=== PATIENT | male | born 1940 ===

== ENCOUNTER 2024-09-09 22:38 | Inpatient (IN) | payer MEDICARE, OTHER ==
--- NOTE | 2024-09-09 22:40 | ED ---
Recheck HPI - General Stated Complaint: UTI Time Seen by Provider: 09/09/24 22:39 Source: RN notes reviewed, old records reviewed Mode of arrival: EMS Limitations: altered mental status - History of Present Illness Initial Comments: This is an 84-year-old male recheck UTI possible UTI known recent fever. Prolonged recent inpatient hospitalization where he was intubated for res piratory failure pneumonia urinary tract infection and multiple other comorbid conditions. Patient was on life support for quite some time has been home for about a week symptoms progressively worsened over the last 2 days with fever today patient himself is without complaint but does appear to have some shortness of breath with cough MD Complaint: abnormal lab Returns Today for: Called Because of Abnormal Lab/Test, persistent/worsening pain related to initial visit Symptoms Since Prior Visit: no new symptoms Context: called for abnormal lab result Associated Symptoms: none Treatments Prior to Arrival: urinary catheter in place, Given Antibiotics on - Related Data Home Medications Medication Instructions Recorded Confirmed Atorvastatin [Lipitor] 40 mg PO DAILY 09/10/24 09/10/24 Brimonidine Tartrate/Timolol 1 drop BOTH EYES TID 09/10/24 09/10/24 [Combigan 0.2%-0.5% Eye Drops] Cetirizine HCl 10 mg PO DAILY 09/10/24 09/10/24 Cyanocobalamin (Vitamin B-12) 1,000 mcg PO DAILY 09/10/24 09/10/24 [Vitamin B-12] Docusate [Colace] 100 mg PO BID 09/10/24 09/10/24 Dorzolamide 2% [Trusopt 2%] 1 drops BOTH EYES TID 09/10/24 09/10/24 Ferrous Sulfate [Feosol] 325 mg PO DAILY 09/10/24 09/10/24 HYDROcodone/APAP 7.5-325MG [[place] 1 tab PO Q6H PRN 09/10/24 09/10/24 7.5-325] LORazepam [Ativan] 0.5 mg PO Q12H PRN 09/10/24 09/10/24 Latanoprostene Bunod [Vyzulta] 1 drop BOTH EYES HS 09/10/24 09/10/24 Levothyroxine Sodium [Synthroid] 175 mcg PO DAILY 09/10/24 09/10/24 Metoprolol Succinate (ER) [Toprol 100 mg PO DAILY 09/10/24 09/10/24 Xl] Pantoprazole [Protonix] 40 mg PO DAILY 09/10/24 09/10/24 QUEtiapine [SEROquel] 12.5 mg PO HS 09/10/24 09/10/24 allopurinoL [Zyloprim] 300 mg PO DAILY 09/10/24 09/10/24 cilostazoL [Pletal] 100 mg PO BID 09/10/24 09/10/24 Allergies Allergy/AdvReac Type Severity Reaction Status Date / Time No Known Allergies Allergy Verified 09/10/24 09:46 Review of Systems ROS Statement: Those systems with pertinent positive or pertinent negative responses have been documented in the HPI. ROS Other: All systems not noted in ROS Statement are negative. Past Medical History Past Medical History: Cancer, Hypertension Additional Past Medical History / Comment(s): gout, bladder cancer History of Any Multi-Drug Resistant Organisms: None Reported Past Surgical History: No Surgical Hx Reported Past Psychological History: No Psychological Hx Reported Smoking Status: Current every day smoker Past Alcohol Use History: Occasional Past Drug Use History: None Reported - Past Family History Brother(s) Family Medical History: Cancer Additional Family Medical History / Comment(s): passed young General Exam General appearance: alert, in no apparent distress Head exam: Present: atraumatic, normocephalic, normal inspection Eye exam: Present: normal appearance, PERRL, EOMI. Absent: scleral icterus, conjunctival injection, periorbital swelling ENT exam: Present: normal exam, mucous membranes moist Neck exam: Present: normal inspection. Absent: tenderness, meningismus, lymphadenopathy Respiratory exam: Present: normal lung sounds bilaterally. Absent: respiratory distress, wheezes, rales, rhonchi, stridor Cardiovascular Exam: Present: regular rate, normal rhythm, normal heart sounds. Absent: systolic murmur, diastolic murmur, rubs, gallop, clicks GI/Abdominal exam: Present: soft, normal bowel sounds. Absent: distended, tenderness, guarding, rebound, rigid Extremities exam: Present: normal inspection, full ROM, normal capillary refill. Absent: tenderness, pedal edema, joint swelling, calf tenderness Back exam: Present: normal inspection Neurological exam: Present: alert, oriented X3, CN II-XII intact Psychiatric exam: Present: normal affect, normal mood Skin exam: Present: warm, dry, intact, normal color. Absent: rash Course Vital Signs 09/09/24 09/10/24 09/10/24 22:43 00:48 01:02 Temperature 101.8 F H 98.8 F Pulse Rate 89 71 87 Respiratory 20 18 Rate Blood Pressure 107/56 93/51 O2 Sat by Pulse 97 96 Oximetry 09/10/24 09/10/24 09/10/24 02:55 03:26 03:54 Temperature 97.9 F Pulse Rate 74 80 73 Respiratory 16 20 Rate Blood Pressure 95/59 115/51 O2 Sat by Pulse 92 L 94 L Oximetry 09/10/24 09/10/24 09/10/24 04:04 04:11 04:20 Temperature Pulse Rate 72 79 76 Respiratory 20 20 Rate Blood Pressure 83/42 109/48 O2 Sat by Pulse 94 L 89 L Oximetry 09/10/24 09/10/24 09/10/24 04:32 04:47 05:00 Temperature Pulse Rate 74 79 78 Respiratory 18 20 16 Rate Blood Pressure 91/44 103/51 110/65 O2 Sat by Pulse 92 L 95 93 L Oximetry 09/10/24 09/10/24 09/10/24 06:00 06:26 07:30 Temperature 98 F Pulse Rate 75 77 Respiratory 16 16 Rate Blood Pressure 111/57 107/58 O2 Sat by Pulse 95 90 L 85 L Oximetry 09/10/24 09/10/24 09/10/24 08:36 08:58 09:08 Temperature 97.9 F Pulse Rate 76 76 75 Respiratory 26 H 24 Rate Blood Pressure 106/65 118/49 O2 Sat by Pulse 88 L 97 Oximetry 09/10/24 09/10/24 09/10/24 09:11 10:23 11:27 Temperature Pulse Rate 78 80 82 Respiratory 22 20 Rate Blood Pressure 111/50 106/62 O2 Sat by Pulse 96 95 Oximetry 09/10/24 09/10/24 09/10/24 12:00 12:05 12:14 Temperature Pulse Rate 79 80 72 Respiratory 20 Rate Blood Pressure 90/49 O2 Sat by Pulse 93 L Oximetry 09/10/24 12:38 Temperature Pulse Rate 71 Respiratory 20 Rate Blood Pressure 102/55 O2 Sat by Pulse 96 Oximetry - Reevaluation(s) Reevaluation #1: 09/09/24 22:47 Medical records reviewed Reevaluation #2: 09/09/24 23:40 Patient has no relative changes in symptoms here in the ER Reevaluation #3: 09/09/24 23:40 Patient informed of results questions answered Reevaluation #4: Was pt. sent in by a medical professional or institution (EMELYN Kiran, PAD MACHINE OPERATOR, urgent care, hospital, or longterm...) When possible be specific @ -no Did you speak to anyone other than the patient for history (EMS, parent, family, police, friend...)? What history was obtained from this source @ -no Did you review nursing and triage notes (agree or disagree)? Why? @ -agree Are old charts reviewed (outside hosp., previous admission, EMS record, old EKG, old radiological studies, urgent care reports/EKG's, longterm records)? Report findings @ -yes Differential Diagnosis (chest pain, altered mental status, abdominal pain women, abdominal pain men, vaginal bleeding, weakness, fever, dyspnea, syncope, headache, dizziness, GI bleed, back pain, seizure, CVA, palpatations, mental hea lth, musculoskeletal)? @ -prior EKG interpreted by me (3pts min.). @ -yes X-rays interpreted by me (1pt min.). @ -yes pneumonia CT interpreted by me (1pt min.). @ -Yes positive for pneumonia U/S interpreted by me (1pt. min.). @ -no What testing was considered but not performed or refused? (CT, X-rays, U/S, labs)? Why? @ -none What meds were considered but not given or refused? Why? @ -none Did you discuss the management of the patient with other professionals (professionals i.e. EMELYN Kiran, PAD MACHINE OPERATOR, lab, RT, psych nurse, social work nurse, bonding agent, teacher, control systems drafting officer, major case detective)? Give summary @ -no Was smoking cessation discussed for >3mins.? @ -no Was critical care preformed (if so, how long)? @ -yes31 Were there social determinants of health that impacted care today? How? (Homelessness, low income, unemployed, alcoholism, drug addiction, transportation, low edu. Level, literacy, decrease access to med. care, fpc, rehab)? @ -none Was there de-escalation of care discussed even if they declined (Discuss DNR or withdrawal of care, Hospice)? DNR status @ -no What co-morbidities impacted this encounter? (DM, HTN, Smoking, COPD, CAD, Cancer, CVA, ARF, Chemo, Hep., AIDS, mental health diagnosis, sleep apnea, morbid obesity)? @ -none Was patient admitted / discharged? Hospital course, mention meds given and route, prescriptions, significant lab abnormalities, going to OR and other pertinent info. @ - 84 male to be admitted for fever and sepsis Admitted Undiagnosed new problem with uncertain prognosis? @ -no Drug Therapy requiring intensive monitoring for toxicity (Heparin, Nitro, Insulin, Cardizem)? @ -no Were any procedures done? @ -no Diagnosis/symptom? @ -Fever and sepsis Acute, or Chronic, or Acute on Chronic? @ -Acute Uncomplicated (without systemic symptoms) or Complicated (systemic symptoms)? @ -Complicated Side effects of treatment? @ -no Exacerbation, Progression, or Severe Exacerbation? @ -exacerbation Poses a threat to life or bodily function? How? (Chest pain, USA, NC, pneumonia, PE, COPD, DKA, ARF, appy, cholecystitis, CVA, Diverticulitis, Homicidal, Suicidal, threat to staff... and all critical care pts) @ -yes extremes of age Reevaluation #5: Differential Weakness: Hypoglycemia, shock, sepsis, hyponatremia, anemia, infection, NC, ETOH, adverse medicine reaction, overdose, stroke, this is not meant to be an all-inclusive list. - Consultations Consultation #1: Patient will be admitted to Dr. Ceballos for evaluation of fever and sepsis Medical Decision Making - Medical Decision Making 84 male to be admitted for fever and sepsis - Lab Data Result diagrams: 09/11/24 05:51 09/11/24 05:51 Lab Results 09/09/24 09/09/24 09/09/24 Range/Units 22:51 22:51 22:51 WBC 18.05 H (4.50-10.00) 10*3/uL RBC 3.71 L (4.40-5.60) 10*6/uL Hgb 10.9 L (13.0-17.0) g/dL Hct 33.1 L (39.6-50.0) % MCV 89.2 (80.0-97.0) fL MCH 29.4 (27.0-32.0) pg MCHC 32.9 (32.0-37.0) g/dL Plt Count 187 (140-440) 10*3/uL MPV 11.1 (9.5-12.2) fL Immature Gran % (Auto) 1.1 % Neutrophils % 80.2 % Lymphocytes % 9.5 % Monocytes % 8.7 % Eosinophils % 0.2 % Basophils % 0.3 % Immature Gran # 0.19 H (0.00-0.04) 10*3/uL Neutrophils # 14.49 H (1.80-7.70) 10*3/uL Lymphocytes # 1.71 (0.90-5.00) 10*3/uL Monocytes # 1.57 H (0.20-1.00) 10*3/uL Eosinophils # 0.03 L (0.04-0.35) 10*3/uL Basophils # 0.06 (0.00-0.10) 10*3/uL PT 11.4 (10.0-12.5) sec INR 1.0 (<1.2) APTT 26.4 (22.0-30.0) sec Sodium 136 L (137-145) mmol/L Potassium 4.3 (3.5-5.1) mmol/L Chloride 106 (98-107) mmol/L Carbon Dioxide 18 L (22-30) mmol/L Anion Gap 12 mmol/L BUN 42 H (9-20) mg/dL Creatinine 2.37 H (0.66-1.25) mg/dL Est GFR (CKD-EPI)AfAm 28 (>60 ml/min/1.73 sqM) Est GFR (CKD-EPI)NonAf 24 (>60 ml/min/1.73 sqM) Glucose 116 H (74-99) mg/dL Plasma Lactic Acid Bandar (0.7-2.0) mmol/L Calcium 9.1 (8.4-10.2) mg/dL Phosphorus 2.6 (2.5-4.5) mg/dL Magnesium 1.4 L (1.6-2.3) mg/dL Total Bilirubin 0.9 (0.2-1.3) mg/dL AST 19 (17-59) U/L ALT 11 (4-49) U/L Alkaline Phosphatase 80 (38-126) U/L Troponin I (0.000-0.034) ng/mL NT-Pro-B Natriuret Pep 1970 pg/mL Total Protein 6.3 (6.3-8.2) g/dL Albumin 3.4 L (3.5-5.0) g/dL 09/09/24 09/09/24 Range/Units 22:51 22:51 WBC (4.50-10.00) 10*3/uL RBC (4.40-5.60) 10*6/uL Hgb (13.0-17.0) g/dL Hct (39.6-50.0) % MCV (80.0-97.0) fL MCH (27.0-32.0) pg MCHC (32.0-37.0) g/dL Plt Count (140-440) 10*3/uL MPV (9.5-12.2) fL Immature Gran % (Auto) % Neutrophils % % Lymphocytes % % Monocytes % % Eosinophils % % Basophils % % Immature Gran # (0.00-0.04) 10*3/uL Neutrophils # (1.80-7.70) 10*3/uL Lymphocytes # (0.90-5.00) 10*3/uL Monocytes # (0.20-1.00) 10*3/uL Eosinophils # (0.04-0.35) 10*3/uL Basophils # (0.00-0.10) 10*3/uL PT (10.0-12.5) sec INR (<1.2) APTT (22.0-30.0) sec Sodium (137-145) mmol/L Potassium (3.5-5.1) mmol/L Chloride (98-107) mmol/L Carbon Dioxide (22-30) mmol/L Anion Gap mmol/L BUN (9-20) mg/dL Creatinine (0.66-1.25) mg/dL Est GFR (CKD-EPI)AfAm (>60 ml/min/1.73 sqM) Est GFR (CKD-EPI)NonAf (>60 ml/min/1.73 sqM) Glucose (74-99) mg/dL Plasma Lactic Acid Bandar 0.9 (0.7-2.0) mmol/L Calcium (8.4-10.2) mg/dL Phosphorus (2.5-4.5) mg/dL Magnesium (1.6-2.3) mg/dL Total Bilirubin (0.2-1.3) mg/dL AST (17-59) U/L ALT (4-49) U/L Alkaline Phosphatase (38-126) U/L Troponin I 0.015 (0.000-0.034) ng/mL NT-Pro-B Natriuret Pep pg/mL Total Protein (6.3-8.2) g/dL Albumin (3.5-5.0) g/dL - EKG Data -: EKG Interpreted by Me (EKG sinus 88 CA 162 QRS 84 QTc 385) - Radiology Data Radiology results: report reviewed (Chest x-ray is negative for acute disease, CT chest negative for acute disease), image reviewed Critical Care Time Critical Care Time: Yes Total Critical Care Time: 31 Disposition Clinical Impression: Fever, Sepsis, UTI (urinary tract infection), History of recent pneumonia Disposition: ADMITTED IP TO THIS HOSP Condition: Serious Is patient prescribed a controlled substance at d/c from ED?: No Time of Disposition: 23:55
[2024-09-09 23:03] LABS: Basophils # (A) 0.06 10*3/uL (0.00-0.10); Basophils % (A) 0.3 %; Eosinophils # (A) 0.03 10*3/uL (0.04-0.35); Eosinophils % (A) 0.2 %; HCT 33.1 % (39.6-50.0); HGB 10.9 g/dL (13.0-17.0); Lymphocytes # (A) 1.71 10*3/uL (0.90-5.00); Lymphocytes % (A) 9.5 %; MCH 29.4 pg (27.0-32.0); MCHC 32.9 g/dL (32.0-37.0); MCV 89.2 fL (80.0-97.0); Monocytes # (A) 1.57 10*3/uL (0.20-1.00); Monocytes % (A) 8.7 %; Neutrophils # (A) 14.49 10*3/uL (1.80-7.70); Neutrophils % (A) 80.2 %; Platelet Count 187 10*3/uL (140-440); RBC 3.71 10*6/uL (4.40-5.60); RDW 14.6 % (11.5-14.5); WBC 18.05 10*3/uL (4.50-10.00)
[2024-09-09] MEDS: SODIUM CHLORIDE 0.9% 1,000 ML IV ONE (23:07)
[2024-09-09] MEDS: ACETAMINOPHEN IV (For NPO) 1,000 MG in EMPTY BAG 1 BAG IVPB ONE (23:09)
[2024-09-09] MEDS: IBUPROFEN IV 800 MG in SODIUM CHLORIDE 0.9% 250 ML IV ONE (23:21)
[2024-09-09 23:25] LABS: ALT 11 U/L (4-49); AST 19 U/L (17-59); African American GFR (CKD) 28 (>60 ml/min/1.73 sqM); Albumin 3.4 g/dL (3.5-5.0); Alkaline Phosphatase 80 U/L (38-126); Anion Gap 12 mmol/L; Blood Urea Nitrogen 42 mg/dL (9-20); Calcium 9.1 mg/dL (8.4-10.2); Carbon Dioxide 18 mmol/L (22-30); Chloride 106 mmol/L (98-107); Glucose 116 mg/dL (74-99); Magnesium 1.4 mg/dL (1.6-2.3); Non-African American GFR(CKD) 24 (>60 ml/min/1.73 sqM); Potassium 4.3 mmol/L (3.5-5.1); Sodium 136 mmol/L (137-145); Total Protein 6.3 g/dL (6.3-8.2)
[2024-09-09 23:32] LABS: NT-Pro-B-Type Natriuretic Pept 1970 pg/mL
[2024-09-09 23:35] LABS: INR 1.0 (<1.2); Partial Thromboplastin Time 26.4 sec (22.0-30.0); Prothrombin Time 11.4 sec (10.0-12.5)
[2024-09-09] MEDS ORDERED: NALOXONE 0.4 MG/ML 1 ML VIAL IV PRN (23:41)
[2024-09-09] MEDS ORDERED: ONDANSETRON 4 MG/2 ML VIAL IVP PRN (23:41)
[2024-09-10 00:40] LABS: VBG HCO3 21.0 mmol/L (24-28); VBG PCO2 43.0 mmHg (37-51); VBG PH 7.29 (7.31-7.41)
[2024-09-10] MEDS: LACTATED RINGERS 1,000 ML IV SCH (00:45)
[2024-09-10 00:46] LABS: Bacteria,Urine Moderate /hpf; Bilirubin,Urine Negative (Negative); Blood,Urine Moderate (Negative); Color,Urine Light Yellow; Glucose,Urine (UA) Negative (Negative); Ketones,Urine Negative (Negative); Leukocyte Esterase,Urine Large (Negative); Mucus,Urine Occasional /hpf; Nitrite,Urine Positive (Negative); PH, Urine 7.0 (5.0-8.0); Protein,Urine 2+ (Negative); RBC,Urine 33 /hpf (0-5); Specific Gravity,Urine 1.018 (1.001-1.035); Urobilinogen,Urine <2.0 mg/dL (<2.0); WBC,Urine >182 /hpf (0-5)
[2024-09-10] MEDS: IPRATROPIUM-ALBUTEROL 3 ML NEB INHALATION STA ×2 (00:47→00:48)
[2024-09-10] MEDS: SODIUM CHLORIDE 0.9% 1,000 ML IV SCH (00:53)
[2024-09-10] MEDS: MAGNESIUM SULFATE-D5W PMX 1 GM in DEXTROSE/WATER 1 100ML.BAG IVPB SCH (01:20)
--- NOTE | 2024-09-10 01:23 | HP ---
HISTORY AND PHYSICAL HISTORY OF PRESENT ILLNESS: An 84-year-old white male with UTI, history of fever, for respiratory failure, pneumonia, urinary tract, multiple other conditions recently. He is on life support home for 1 week. Yesterday, as he came here with worsening shortness of breath and cough. ALLERGIES: Negative. REVIEW OF SYSTEMS: A 14-point review of systems is otherwise negative. PAST MEDICAL HISTORY: Cancer, hypertension, gout, bladder cancer. SOCIAL HISTORY: Current everyday smoker. PHYSICAL EXAMINATION: VITAL SIGNS: Stable, afebrile. Temperature 101.8, pulse 89, respiratory rate 20, and blood pressure 106/76. GENERAL: He is alert, in no acute distress. HEENT: Head normocephalic, atraumatic. Pupils equal, round and reactive. LUNGS: Decreased respiratory wheeze and rhonchi. No rales. CARDIOVASCULAR: S1, S2. ABDOMEN: Soft, and nontender. ASSESSMENT AND PLAN: Fever, sepsis, probable aspiration pneumonia, acute on chronic renal insufficiency, acute tubular necrosis, rehydrate. We have to keep creatinine and GFR increased. Acute fever, sepsis, urinary tract infection, recent pneumonia, possibility of recurrent pneumonia. will be done. Prognosis guarded. MMODL / IJN: [id number] /
--- NOTE | 2024-09-10 01:33 | XR ---
EXAM: XR Chest, 1 View CLINICAL HISTORY: ITS.REASON XR Reason: sob TECHNIQUE: Frontal view of the chest. COMPARISON: No relevant prior studies available. FINDINGS: Lungs: Left base consolidation, likely atelectasis. Correlate for mild pneumonia. Atelectasis in the right mid lung field. Pleural space: Unremarkable. No pneumothorax. Heart: Mild cardiomegaly. Mediastinum: Unremarkable. Bones/joints: Unremarkable. IMPRESSION: Left base consolidation, likely atelectasis. Correlate for mild pneumonia.
--- NOTE | 2024-09-10 02:20 | CT ---
EXAM: CT Chest Without Intravenous Contrast CLINICAL HISTORY: ITS.REASON CT Reason: hap TECHNIQUE: Axial computed tomography images of the chest without intravenous contrast. CTDI is 10.8 mGy and DLP is 424.3 mGy-cm. This CT exam was performed using one or more of the following dose reduction techniques: automated exposure control, adjustment of the mA and/or kV according to patient size, and/or use of iterative reconstruction technique. COMPARISON: No relevant prior studies available. FINDINGS: Lungs: Left lower lobe pneumonia. Pleural space: Unremarkable. No pneumothorax. No significant effusion. Heart: Unremarkable. No cardiomegaly. No significant pericardial effusion. No significant coronary artery calcifications. Bones/joints: Degenerative changes of the spine. No acute fracture. No dislocation. Soft tissues: Unremarkable. Vasculature: Atherosclerotic changes of the aorta. No thoracic aortic aneurysm. Lymph nodes: Unremarkable. No enlarged lymph nodes. Kidneys and ureters: Bilateral renal cysts. IMPRESSION: Left lower lobe pneumonia.
[2024-09-10] MEDS: ALBUTEROL NEBULIZED 2.5 MG/3 ML INHALATION SCH (03:54)
[2024-09-10] MEDS: FUROSEMIDE 10 MG/ML 2 ML VIAL IV ONE (06:11)
[2024-09-10 06:17] LABS: Basophils # (A) 0.04 10*3/uL (0.00-0.10); Basophils % (A) 0.3 %; Eosinophils # (A) 0.03 10*3/uL (0.04-0.35); Eosinophils % (A) 0.2 %; HCT 36.5 % (39.6-50.0); HGB 11.5 g/dL (13.0-17.0); Lymphocytes # (A) 1.05 10*3/uL (0.90-5.00); Lymphocytes % (A) 7.7 %; MCH 29.4 pg (27.0-32.0); MCHC 31.5 g/dL (32.0-37.0); MCV 93.4 fL (80.0-97.0); Monocytes # (A) 0.75 10*3/uL (0.20-1.00); Monocytes % (A) 5.5 %; Neutrophils # (A) 11.67 10*3/uL (1.80-7.70); Neutrophils % (A) 85.1 %; Platelet Count 181 10*3/uL (140-440); RBC 3.91 10*6/uL (4.40-5.60); RDW 14.9 % (11.5-14.5); WBC 13.70 10*3/uL (4.50-10.00)
[2024-09-10 06:40] LABS: ALT 11 U/L (4-49); AST 17 U/L (17-59); African American GFR (CKD) 25 (>60 ml/min/1.73 sqM); Albumin 3.0 g/dL (3.5-5.0); Alkaline Phosphatase 79 U/L (38-126); Anion Gap 8 mmol/L; Blood Urea Nitrogen 39 mg/dL (9-20); Calcium 8.4 mg/dL (8.4-10.2); Carbon Dioxide 24 mmol/L (22-30); Chloride 106 mmol/L (98-107); Glucose 127 mg/dL (74-99); Magnesium 2.3 mg/dL (1.6-2.3); Non-African American GFR(CKD) 22 (>60 ml/min/1.73 sqM); Potassium 4.4 mmol/L (3.5-5.1); Sodium 138 mmol/L (137-145); Total Protein 5.8 g/dL (6.3-8.2)
[2024-09-10] MEDS ORDERED: BUDESONIDE 0.5 MG/2 ML NEBU INHALATION SCH (08:00)
[2024-09-10] MEDS ORDERED: IPRATROPIUM-ALBUTEROL 3 ML NEB INHALATION PRN (08:07)
[2024-09-10] MEDS: methylPREDNISolone SOD SUCCI 40 MG/ML 1 ML VIAL IV SCH (08:44)
[2024-09-10] MEDS: PIPERACILLIN-TAZOBACTAM 3.375 GM in SODIUM CHLORIDE 0.9% 100 ML IVPB SCH (08:53)
[2024-09-10] MEDS: IPRATROPIUM-ALBUTEROL 3 ML NEB INHALATION SCH (08:55)
[2024-09-10] MEDS: AZITHROMYCIN 500 MG in SODIUM CHLORIDE 0.9% 250 ML IVPB SCH (11:48)
--- NOTE | 2024-09-10 13:01 | P.CNPUL ---
History of Present Illness Consult date: 09/10/24 Requesting physician: Dm Ceballos Reason for consult: pneumonia Chief complaint: Shortness of breath, cough, congestion, and fever History of present illness: This is an 84-year-old white male, poor historian, patient does not speak any Albanian, supposedly the patient was admitted recently to [facility] with acute hypoxic respiratory failure requiring intubation mechanical ventilation. It is unknown how long was the patient intubated and mechanically ventilated, but supposedly the patient had pneumonia and urinary tract infection and he was recently discharged home. Seen again recently at [facility] or [facility], and he was evaluated for shortness of breath, and fever, no workup could be seen on the chart on this patient, and no family around for getting more information on the patient, however patient was noted to have significant leukocytosis with WBC count of 18.0 hemoglobin 10.9, abnormal renal profile with a BUN of 42 creatinine 2.37 abnormal urinalysis suggestive of urinary tract infection, chest x-ray suggestive of left lower lobe pneumonia/at electasis, CT of the chest showing possible left lower lobe pneumonia. Obviously the patient is presenting with a picture of UTI and left lower lobe pneumonia/sepsis. Again not much information could be obtained from the patient himself and no family members available. Patient will be admitted I saw this patient in consultation and I started the patient empirically on Zosyn. Review of Systems ROS unobtainable: due to mental status Past Medical History Past Medical History: Cancer, Hypertension Additional Past Medical History / Comment(s): gout, bladder cancer, colon cancer, intubated in July/August 2024 for respiratory failure History of Any Multi-Drug Resistant Organisms: None Reported Past Surgical History: No Surgical Hx Reported Additional Past Surgical History / Comment(s): Urostomy placement Past Psychological History: No Psychological Hx Reported Smoking Status: Current every day smoker Past Alcohol Use History: Occasional Past Drug Use History: None Reported Medications and Allergies Home Medications Medication Instructions Recorded Confirmed Type Atorvastatin [Lipitor] 40 mg PO DAILY 09/10/24 09/10/24 History Brimonidine Tartrate/Timolol 1 drop BOTH EYES TID 09/10/24 09/10/24 History [Combigan 0.2%-0.5% Eye Drops] Cetirizine HCl 10 mg PO DAILY 09/10/24 09/10/24 History Cyanocobalamin (Vitamin B-12) 1,000 mcg PO DAILY 09/10/24 09/10/24 History [Vitamin B-12] Docusate [Colace] 100 mg PO BID 09/10/24 09/10/24 History Dorzolamide 2% [Trusopt 2%] 1 drops BOTH EYES TID 09/10/24 09/10/24 History Ferrous Sulfate [Feosol] 325 mg PO DAILY 09/10/24 09/10/24 History HYDROcodone/APAP 7.5-325MG [[place] 1 tab PO Q6H PRN 09/10/24 09/10/24 History 7.5-325] LORazepam [Ativan] 0.5 mg PO Q12H PRN 09/10/24 09/10/24 History Latanoprostene Bunod [Vyzulta] 1 drop BOTH EYES HS 09/10/24 09/10/24 History Levothyroxine Sodium [Synthroid] 175 mcg PO DAILY 09/10/24 09/10/24 History Metoprolol Succinate (ER) [Toprol 100 mg PO DAILY 09/10/24 09/10/24 History Xl] Pantoprazole [Protonix] 40 mg PO DAILY 09/10/24 09/10/24 History QUEtiapine [SEROquel] 12.5 mg PO HS 09/10/24 09/10/24 History allopurinoL [Zyloprim] 300 mg PO DAILY 09/10/24 09/10/24 History cilostazoL [Pletal] 100 mg PO BID 09/10/24 09/10/24 History Allergies Allergy/AdvReac Type Severity Reaction Status Date / Time No Known Allergies Allergy Verified 09/10/24 09:46 Physical Exam Vitals: Vital Signs Temp Pulse Resp BP Pulse Ox 09/10/24 12:38 71 20 102/55 96 09/10/24 12:14 72 09/10/24 12:05 80 09/10/24 12:00 79 20 90/49 93 L 09/10/24 11:27 82 20 106/62 95 09/10/24 10:23 80 22 111/50 96 09/10/24 09:11 78 09/10/24 09:08 75 24 118/49 97 09/10/24 08:58 76 09/10/24 08:36 97.9 F 76 26 H 106/65 88 L 09/10/24 07:30 85 L 09/10/24 06:26 98 F 77 16 107/58 90 L 09/10/24 06:00 75 16 111/57 95 09/10/24 05:00 78 16 110/65 93 L 09/10/24 04:47 79 20 103/51 95 09/10/24 04:32 74 18 91/44 92 L 09/10/24 04:20 76 20 109/48 89 L 09/10/24 04:11 79 20 83/42 94 L 09/10/24 04:04 72 09/10/24 03:54 73 09/10/24 03:26 97.9 F 80 20 115/51 94 L 09/10/24 02:55 74 16 95/59 92 L 09/10/24 01:02 87 09/10/24 00:48 98.8 F 71 18 93/51 96 09/09/24 22:43 101.8 F H 89 20 107/56 97 Intake and Output 09/09/24 09/10/24 09/10/24 22:59 06:59 14:59 Output Total 600 Balance -600 Output: Urine 600 Other: Weight 89.358 kg Physical exam revealed an 84-year-old white male, seems to be a bit confused, not in respiratory distress. Patient is on 6 L nasal cannula. Head: Atraumatic, normocephalic EENT: PERRLA, EOMI, nonicteric, no neck masses, no JVD, no stridor, moist mucous membranes Chest: Symmetrical chest expansion Lungs: Crackles and rhonchi at the bases. Cardiac: Normal S1-S2, no S3 gallop, no murmur, no bruit Abdomen: Soft nontender no megaly no rebound no guarding good bowel sounds Extremities: No clubbing edema or cyanosis, good pulses bilaterally Musculoskeletal: No deformities and no limitation range of motion Neurologic: Awake, but does not follow instructions, I believe the patient does not speak or understand any Albanian. Psychiatric: Could not fully assess because of his language barrier. Skin: No rashes. Results - Laboratory Findings CBC and BMP: 09/10/24 06:01 09/10/24 06:01 PT/INR, D-dimer PT 11.4 sec (10.0-12.5) 09/09/24 22:51 INR 1.0 (<1.2) 09/09/24 22:51 D-Dimer 2.01 mg/L FEU (<0.60) H 09/10/24 06:01 Abnormal lab findings: Abnormal Labs 09/09/24 09/09/24 09/09/24 22:51 22:51 23:42 WBC 18.05 H RBC 3.71 L Hgb 10.9 L Hct 33.1 L MCHC Immature Gran # 0.19 H Neutrophils # 14.49 H Monocytes # 1.57 H Eosinophils # 0.03 L D-Dimer VBG pH VBG HCO3 Sodium 136 L Carbon Dioxide 18 L BUN 42 H Creatinine 2.37 H Glucose 116 H Magnesium 1.4 L Total Protein Albumin 3.4 L Urine Protein 2+ H Urine Blood Moderate H Ur Leukocyte Esterase Large H Urine RBC 33 H Urine WBC >182 H Urine WBC Clumps Many H Urine Bacteria Moderate H Urine Mucus Occasional H 09/10/24 09/10/24 09/10/24 00:19 06:01 06:01 WBC 13.70 H RBC 3.91 L Hgb 11.5 L Hct 36.5 L MCHC 31.5 L Immature Gran # 0.16 H Neutrophils # 11.67 H Monocytes # Eosinophils # 0.03 L D-Dimer VBG pH 7.29 L VBG HCO3 21 L Sodium Carbon Dioxide BUN 39 H Creatinine 2.59 H Glucose 127 H Magnesium Total Protein 5.8 L Albumin 3.0 L Urine Protein Urine Blood Ur Leukocyte Esterase Urine RBC Urine WBC Urine WBC Clumps Urine Bacteria Urine Mucus 09/10/24 06:01 WBC RBC Hgb Hct MCHC Immature Gran # Neutrophils # Monocytes # Eosinophils # D-Dimer 2.01 H VBG pH VBG HCO3 Sodium Carbon Dioxide BUN Creatinine Glucose Magnesium Total Protein Albumin Urine Protein Urine Blood Ur Leukocyte Esterase Urine RBC Urine WBC Urine WBC Clumps Urine Bacteria Urine Mucus - Diagnostic Findings CT scan - chest: image reviewed (As noted in HPI) Assessment and Plan Assessment: Impression: Acute hypoxic respiratory failure Acute urinary tract infection Suspected aspiration pneumonia or hospital-acquired pneumonia as the patient was recently admitted with pneumonia and respiratory failure requiring intubation mechanical ventilation Acute sepsis secondary to above Benign essential hypertension History of bladder cancer History of gout Recommendation: Patient was seen and examined while in the ER Will change antibiotic to Zosyn empirically Continue oxygen and titrate accordingly Check blood cultures, sputum cultures and urine cultures and change antibiotics accordingly GI and DVT prophylaxis Resume home meds if a list of his home meds could be obtained once family members are available We will continue to follow Prognosis is guarded considering patient was recently admitted to [facility] with respiratory failure requiring intubation mechanical ventilation. Time with Patient: Greater than 30
[2024-09-10] MEDS: HEPARIN SODIUM,PORCINE 5,000 UNIT/ML 1 ML VIAL SQ SCH (14:46)
[2024-09-10] MEDS: PANTOPRAZOLE 40 MG/10 ML VIAL IVP SCH (14:46)
--- NOTE | 2024-09-10 14:46 | P.CRDCN ---
History of Present Illness History of present illness: Patient is a pleasant 84-year-old male with a history of respiratory failure with recent hospitalization at [facility] requiring intubation who presented secondary to shortness of breath. Patient poor historian and does not speak Maori however nephew is there to translate. Patient stating he wants to go home and not answering questions even through translation. Apparently he had lengthy hospitalization at [facility] however unsure of any definitive diagnosis. He was found to have fever on presentation with UTI and chest x-ray consistent with left lower lobe pneumonia. CT of the chest showed possible left lower lobe pneumonia. Through translation he denies any chest pain or pressure. He denies any prior cardiac history. Cardiology was consulted secondary to CHF and hypotension. Patient has had intermittent lower blood pressures in the 80s to 90s systolic. White blood cell count 18, hemoglobin 10.9, D-dimer 2.0, creatinine 2.3, 2.5, troponin 0.015, 0.012 and proBNP 1970. EKG shows normal sinus rhythm normal axis nonspecific minimal ST depressions in the inferior and lateral leads. REVIEW OF SYSTEMS At the time of my exam: CONSTITUTIONAL: +fever no chills. CARDIOVASCULAR: Denies chest pain, shortness of breath, orthopnea, PND or palpitations. RESPIRATORY: Denies cough. GASTROINTESTINAL: Denies abdominal pain, diarrhea, constipation, nausea or vo miting. MUSCULOSKELETAL: Denies myalgias. NEUROLOGIC: Denies numbness, tingling or weakness. ENDOCRINE: Denies fatigue, weight change, polydipsia or polyurina. GENITOURINARY: Denies burning, hematuria or urgency with micturation. HEMATOLOGIC: Denies history of anemia or bleeding. PHYSICAL EXAMINATION Vital signs reviewed. CONSTITUTIONAL: No apparent distress, chronically ill appearing. HEENT: Head is normocephalic. Pupils are equal, round. Sclerae anicteric. Mucous membranes of the mouth are moist. No JVD. No carotid bruit. CHEST EXAMINATION: Lungs are clear to auscultation. No chest wall tenderness is noted on palpation or with deep breathing. HEART EXAMINATION: Regular rate and rhythm. S1, S2 heard. No murmurs, gallops or rub. ABDOMEN: Soft, nontender. Positive bowel sounds. EXTREMITIES: 2+ peripheral pulses, no lower extremity edema and no calf tenderness. NEUROLOGIC EXAMINATION: Patient is awake, alert, poor historian. ASSESSMENT Acute on chronic respiratory failure Hypotension related to sepsis Elevated proBNP, chronic diastolic heart failure Sepsis Coronary artery calcifications noted on CT Hypertension on home metoprolol Urinary tract infection Possible pneumonia PLAN Obtain records from [facility]. Majority of presentation appears related to sepsis. Continue with supportive care. Monitor blood pressure closely and vasopressors if needed. Further recommendations to follow. Past Medical History Past Medical History: Cancer, Hypertension Additional Past Medical History / Comment(s): gout, bladder cancer, colon cancer, intubated in August 2024 for respiratory failure History of Any Multi-Drug Resistant Organisms: None Reported Past Surgical History: No Surgical Hx Reported Additional Past Surgical History / Comment(s): Urostomy placement Past Psychological History: No Psychological Hx Reported Smoking Status: Current every day smoker Past Alcohol Use History: Occasional Past Drug Use History: None Reported Medications and Allergies Home Medications Medication Instructions Recorded Confirmed Type Atorvastatin [Lipitor] 40 mg PO DAILY 09/10/24 09/10/24 History Brimonidine Tartrate/Timolol 1 drop BOTH EYES TID 09/10/24 09/10/24 History [Combigan 0.2%-0.5% Eye Drops] Cetirizine HCl 10 mg PO DAILY 09/10/24 09/10/24 History Cyanocobalamin (Vitamin B-12) 1,000 mcg PO DAILY 09/10/24 09/10/24 History [Vitamin B-12] Docusate [Colace] 100 mg PO BID 09/10/24 09/10/24 History Dorzolamide 2% [Trusopt 2%] 1 drops BOTH EYES TID 09/10/24 09/10/24 History Ferrous Sulfate [Feosol] 325 mg PO DAILY 09/10/24 09/10/24 History HYDROcodone/APAP 7.5-325MG [[place] 1 tab PO Q6H PRN 09/10/24 09/10/24 History 7.5-325] LORazepam [Ativan] 0.5 mg PO Q12H PRN 09/10/24 09/10/24 History Latanoprostene Bunod [Vyzulta] 1 drop BOTH EYES HS 09/10/24 09/10/24 History Levothyroxine Sodium [Synthroid] 175 mcg PO DAILY 09/10/24 09/10/24 History Metoprolol Succinate (ER) [Toprol 100 mg PO DAILY 09/10/24 09/10/24 History Xl] Pantoprazole [Protonix] 40 mg PO DAILY 09/10/24 09/10/24 History QUEtiapine [SEROquel] 12.5 mg PO HS 09/10/24 09/10/24 History allopurinoL [Zyloprim] 300 mg PO DAILY 09/10/24 09/10/24 History cilostazoL [Pletal] 100 mg PO BID 09/10/24 09/10/24 History Allergies Allergy/AdvReac Type Severity Reaction Status Date / Time No Known Allergies Allergy Verified 09/10/24 09:46 Physical Exam Vitals: Vital Signs Temp Pulse Pulse Resp BP BP Pulse Ox 09/10/24 13:10 78 20 131/84 94 L 09/10/24 12:38 71 20 102/55 96 09/10/24 12:14 72 09/10/24 12:05 80 09/10/24 12:00 79 20 90/49 93 L 09/10/24 11:27 82 20 106/62 95 09/10/24 10:23 80 22 111/50 96 09/10/24 09:11 78 09/10/24 09:08 75 24 118/49 97 09/10/24 08:58 76 09/10/24 08:36 97.9 F 76 26 H 106/65 88 L 09/10/24 07:30 85 L 09/10/24 06:26 98 F 77 16 107/58 90 L 09/10/24 06:00 75 16 111/57 95 09/10/24 05:00 78 16 110/65 93 L 09/10/24 04:47 79 20 103/51 95 09/10/24 04:32 74 18 91/44 92 L 09/10/24 04:20 76 20 109/48 89 L 09/10/24 04:11 79 20 83/42 94 L 09/10/24 04:04 72 09/10/24 03:54 73 09/10/24 03:26 97.9 F 80 20 115/51 94 L 09/10/24 02:55 74 16 95/59 92 L 09/10/24 01:02 87 09/10/24 00:48 98.8 F 71 18 93/51 96 09/09/24 22:43 101.8 F H 89 20 107/56 97 Intake and Output 09/09/24 09/10/24 09/10/24 22:59 06:59 14:59 Output Total 750 Balance -750 Output: Urine 750 Other: Weight 89.358 kg Results 09/10/24 06:01 09/10/24 06:01 Cardiac Enzymes 09/09/24 09/09/24 09/10/24 Range/Units 22:51 22:51 06:01 AST 19 17 (17-59) U/L Troponin I 0.015 (0.000-0.034) ng/mL 09/10/24 Range/Units 06:01 AST (17-59) U/L Troponin I <0.012 (0.000-0.034) ng/mL Coagulation 09/09/24 Range/Units 22:51 PT 11.4 (10.0-12.5) sec APTT 26.4 (22.0-30.0) sec CBC 09/09/24 09/10/24 Range/Units 22:51 06:01 WBC 18.05 H 13.70 H (4.50-10.00) 10*3/uL RBC 3.71 L 3.91 L (4.40-5.60) 10*6/uL Hgb 10.9 L 11.5 L (13.0-17.0) g/dL Hct 33.1 L 36.5 L (39.6-50.0) % Plt Count 187 181 (140-440) 10*3/uL Comprehensive Metabolic Panel 09/09/24 09/10/24 Range/Units 22:51 06:01 Sodium 136 L 138 (137-145) mmol/L Potassium 4.3 4.4 (3.5-5.1) mmol/L Chloride 106 106 (98-107) mmol/L Carbon Dioxide 18 L 24 (22-30) mmol/L BUN 42 H 39 H (9-20) mg/dL Creatinine 2.37 H 2.59 H (0.66-1.25) mg/dL Glucose 116 H 127 H (74-99) mg/dL Calcium 9.1 8.4 (8.4-10.2) mg/dL AST 19 17 (17-59) U/L ALT 11 11 (4-49) U/L Alkaline Phosphatase 80 79 (38-126) U/L Total Protein 6.3 5.8 L (6.3-8.2) g/dL Albumin 3.4 L 3.0 L (3.5-5.0) g/dL Current Medications Generic Name Dose Route Start Last Admin Trade Name Freq PRN Reason Stop Dose Admin Albuterol/Ipratropium 3 ml 09/10/24 12:00 09/10/24 12:04 Ipratropium-Albuterol 3 Ml Neb INHALATION 3 ml RT-QID KAMRON Administration Albuterol/Ipratropium 3 ml 09/10/24 08:07 Ipratropium-Albuterol 3 Ml Neb INHALATION RT-Q2H PRN Shortness Of Breath Or Wheezing Heparin Sodium (Porcine) 5,000 unit 09/10/24 13:15 Heparin Sodium,Porcine 5,000 Unit/Ml 1 Ml Vial SQ Q12HR KAMRON Azithromycin 500 mg/ Sodium 250 mls @ 250 mls/hr 09/10/24 09:00 09/10/24 11:48 Chloride IVPB 09/12/24 09:59 250 mls/hr DAILY KAMRON Administration Protocol Piperacillin Sod/Tazobactam 100 mls @ 25 mls/hr 09/10/24 08:00 09/10/24 08:53 Sod 3.375 gm/ Sodium Chloride IVPB 25 mls/hr Q12H KAMRON Administration Protocol Methylprednisolone Sodium Succinate 40 mg 09/10/24 08:00 09/10/24 08:44 Methylprednisolone Sod Succi 40 Mg/Ml 1 Ml Vial IV 40 mg Q8HR KAMRON Administration Morphine Sulfate 4 mg 09/09/24 23:41 Morphine Sulfate 4 Mg/Ml Syringe IV Q4HR PRN Severe Pain (Scale 7 to 10) Naloxone HCl 0.2 mg 09/09/24 23:41 Naloxone 0.4 Mg/Ml 1 Ml Vial IV Q2M PRN Opioid Reversal Ondansetron HCl 4 mg 09/09/24 23:41 Ondansetron 4 Mg/2 Ml Vial IVP Q8HR PRN Nausea And Vomiting Pantoprazole Sodium 40 mg 09/10/24 13:15 Pantoprazole 40 Mg/10 Ml Vial IVP DAILY KAMRON Intake and Output 09/09/24 09/10/24 09/10/24 22:59 06:59 14:59 Output Total 750 Balance -750 Output: Urine 750 Other: Weight 89.358 kg 09/10/24 06:01 09/10/24 06:01
[2024-09-10 16:31] LABS: Glucose,Whole Blood 130 mg/dL (70-110)
[2024-09-10] MEDS ORDERED: HYDROcodone/APAP 7.5-325MG 1 EACH TAB PO PRN (16:39)
[2024-09-10] MEDS ORDERED: LORazepam 0.5 MG TAB PO PRN (16:39)
[2024-09-10 20:11] LABS: Glucose,Whole Blood 207 mg/dL (70-110)
[2024-09-10] MEDS: NON FORMULARY DRUG (Latanoprostene Bunod [Vyzulta] 5 ML Ml) BOTH EYES SCH (20:23)
[2024-09-10] MEDS: BRIMONIDINE TARTRATE 0.2% DROPS 5 ML BTL BOTH EYES SCH (20:47)
[2024-09-10] MEDS: DORZOLAMIDE HCL 2% DROPS 10 ML BTL BOTH EYES SCH (20:48)
[2024-09-10] MEDS: TIMOLOL 0.5% OPHTH DROPS 5 ML BTL BOTH EYES SCH (20:48)
[2024-09-10] MEDS: QUEtiapine 25 MG TAB PO SCH (20:48)
[2024-09-10] MEDS: DOCUSATE 100 MG CAP PO SCH (20:48)
[2024-09-11 06:00] LABS: Glucose,Whole Blood 185 mg/dL (70-110)
[2024-09-11] MEDS: LEVOTHYROXINE 88 MCG TAB PO SCH (06:08)
[2024-09-11 06:25] LABS: Basophils # (A) 0.02 10*3/uL (0.00-0.10); Basophils % (A) 0.2 %; Eosinophils # (A) 0.00 10*3/uL (0.04-0.35); Eosinophils % (A) 0.0 %; HCT 33.4 % (39.6-50.0); HGB 10.5 g/dL (13.0-17.0); Lymphocytes # (A) 0.57 10*3/uL (0.90-5.00); Lymphocytes % (A) 5.6 %; MCH 29.3 pg (27.0-32.0); MCHC 31.4 g/dL (32.0-37.0); MCV 93.3 fL (80.0-97.0); Monocytes # (A) 0.16 10*3/uL (0.20-1.00); Monocytes % (A) 1.6 %; Neutrophils # (A) 9.24 10*3/uL (1.80-7.70); Neutrophils % (A) 91.5 %; Platelet Count 149 10*3/uL (140-440); RBC 3.58 10*6/uL (4.40-5.60); RDW 14.8 % (11.5-14.5); WBC 10.10 10*3/uL (4.50-10.00)
[2024-09-11 06:44] LABS: ALT 12 U/L (4-49); AST 20 U/L (17-59); African American GFR (CKD) 25 (>60 ml/min/1.73 sqM); Albumin 2.9 g/dL (3.5-5.0); Alkaline Phosphatase 80 U/L (38-126); Anion Gap 12 mmol/L; Blood Urea Nitrogen 50 mg/dL (9-20); Calcium 8.7 mg/dL (8.4-10.2); Carbon Dioxide 20 mmol/L (22-30); Chloride 107 mmol/L (98-107); Glucose 175 mg/dL (74-99); Non-African American GFR(CKD) 22 (>60 ml/min/1.73 sqM); Potassium 4.5 mmol/L (3.5-5.1); Sodium 139 mmol/L (137-145); Total Protein 5.8 g/dL (6.3-8.2)
--- NOTE | 2024-09-11 07:42 | P.PN ---
Subjective Patient is a pleasant 84-year-old male with a history of respiratory failure with recent hospitalization at [facility] requiring intubation who presented secondary to shortness of breath. Patient poor historian and does not speak Cymro however nephew is there to translate. Patient stating he wants to go home and not answering questions even through translation. Apparently he had lengthy hospitalization at [facility] however unsure of any definitive diagnosis. He was found to have fever on presentation with UTI and chest x-ray consistent with left lower lobe pneumonia. CT of the chest showed possible left lower lobe pneumonia. Through translation he denies any chest pain or pressure. He denies any prior cardiac history. Cardiology was consulted secondary to CHF and hypotension. Patient has had intermittent lower blood pressures in the 80s to 90s systolic. White blood cell count 18, hemoglobin 10.9, D-dimer 2.0, cr eatinine 2.3, 2.5, troponin 0.015, 0.012 and proBNP 1970. EKG shows normal sinus rhythm normal axis nonspecific minimal ST depressions in the inferior and lateral leads. 09/11 Patient seen and examined. No issues per nursing. He does have a one-to-one sitter to redirect patient. Creatinine stable at 2.5. Concern of patient aspirating therefore patient n.p.o. and awaiting swallow eval. White blood cell count coming down to 10. PHYSICAL EXAMINATION Vital signs reviewed. CONSTITUTIONAL: No apparent distress, chronically ill appearing. HEENT: Head is normocephalic. Pupils are equal, round. Sclerae anicteric. Mucous membranes of the mouth are moist. No JVD. No carotid bruit. CHEST EXAMINATION: Lungs are clear to auscultation. No chest wall tenderness is noted on palpation or with deep breathing. HEART EXAMINATION: Regular rate and rhythm. S1, S2 heard. No murmurs, gallops or rub. ABDOMEN: Soft, nontender. Positive bowel sounds. EXTREMITIES: 2+ peripheral pulses, no lower extremity edema and no calf tenderness. NEUROLOGIC EXAMINATION: Patient is awake, alert, poor historian. ASSESSMENT Acute on chronic respiratory failure Hypotension related to sepsis Elevated proBNP, chronic diastolic heart failure Sepsis Coronary artery calcifications noted on CT Hypertension on home metoprolol Urinary tract infection Possible pneumonia PLAN Await records from [facility]. Majority of presentation appears related to sepsis. Continue with supportive care. Patient does not currently appear volume overloaded and patient n.p.o. and hold any diuretics for now. Monitor closely. Monitor blood pressure closely and vasopressors if needed. Further recommendations to follow. Objective - Vital Signs Vital signs: Vital Signs Temp 97.7 F 09/11/24 04:00 Pulse 92 09/11/24 04:00 Resp 20 09/11/24 04:00 BP 112/47 09/11/24 04:00 Pulse Ox 94 L 09/11/24 04:00 FiO2 Intake & Output 09/10/24 09/11/24 09/11/24 18:59 06:59 18:59 Intake Total 118 Output Total 1125 850 Balance -1007 -850 Weight 79.5 kg Intake: Oral 118 Output: Urine 1125 850 - Labs CBC & Chem 7: 09/11/24 05:51 09/11/24 05:51 Labs: Abnormal Lab Results - Last 24 Hours (Table) 09/10/24 09/10/24 09/11/24 Range/Units 16:30 20:10 05:51 WBC 10.10 H (4.50-10.00) 10*3/uL RBC 3.58 L (4.40-5.60) 10*6/uL Hgb 10.5 L (13.0-17.0) g/dL Hct 33.4 L (39.6-50.0) % MCHC 31.4 L (32.0-37.0) g/dL MPV 12.4 H (9.5-12.2) fL Immature Gran # 0.11 H (0.00-0.04) 10*3/uL Neutrophils # 9.24 H (1.80-7.70) 10*3/uL Lymphocytes # 0.57 L (0.90-5.00) 10*3/uL Monocytes # 0.16 L (0.20-1.00) 10*3/uL Eosinophils # 0.00 L (0.04-0.35) 10*3/uL Carbon Dioxide (22-30) mmol/L BUN (9-20) mg/dL Creatinine (0.66-1.25) mg/dL Glucose (74-99) mg/dL POC Glucose (mg/dL) 130 H 207 H (70-110) mg/dL Total Protein (6.3-8.2) g/dL Albumin (3.5-5.0) g/dL 09/11/24 09/11/24 Range/Units 05:51 05:59 WBC (4.50-10.00) 10*3/uL RBC (4.40-5.60) 10*6/uL Hgb (13.0-17.0) g/dL Hct (39.6-50.0) % MCHC (32.0-37.0) g/dL MPV (9.5-12.2) fL Immature Gran # (0.00-0.04) 10*3/uL Neutrophils # (1.80-7.70) 10*3/uL Lymphocytes # (0.90-5.00) 10*3/uL Monocytes # (0.20-1.00) 10*3/uL Eosinophils # (0.04-0.35) 10*3/uL Carbon Dioxide 20 L (22-30) mmol/L BUN 50 H (9-20) mg/dL Creatinine 2.59 H (0.66-1.25) mg/dL Glucose 175 H (74-99) mg/dL POC Glucose (mg/dL) 185 H (70-110) mg/dL Total Protein 5.8 L (6.3-8.2) g/dL Albumin 2.9 L (3.5-5.0) g/dL
[2024-09-11] MEDS ORDERED: PANTOPRAZOLE 40 MG TABLET PO SCH (09:00)
[2024-09-11] MEDS: FERROUS SULFATE 325 MG TAB PO SCH (10:18)
[2024-09-11] MEDS: ATORVASTATIN 40 MG TAB PO SCH (10:19)
[2024-09-11] MEDS: LORATADINE 10 MG TAB PO SCH (10:19)
[2024-09-11] MEDS: CYANOCOBALAMIN 500 MCG TAB PO SCH (10:19)
[2024-09-11] MEDS: METOPROLOL SUCCINATE (ER) 100 MG TAB.ER.24H PO SCH (10:19)
[2024-09-11 11:46] LABS: Glucose,Whole Blood 232 mg/dL (70-110)
--- NOTE | 2024-09-11 13:32 | P.PN ---
Subjective Progress Note Date: 09/11/24 Principal diagnosis: Acute hypoxic respiratory failure with acute UTI and possible aspiration pneumonia./Acute sepsis. This is an 84-year-old white male, poor historian, patient does not speak any [place] Verdean, supposedly the patient was admitted recently to [facility] with acute hypoxic respiratory failure requiring intubation mechanical ventilation. It is unknown how long was the patient intubated and mechanically ventilated, but supposedly the patient had pneumonia and urinary tract infection and he was recently discharged home. Seen again recently at [facility] or [facility], and he was evaluated for shortness of breath, and fever, no workup could be seen on the chart on this patient, and no family around for getting more information on the patient, however patient was noted to have significant leukocytosis with WBC count of 18.0 hemoglobin 10.9, abnormal renal profile with a BUN of 42 creatinine 2.37 abnormal urinalysis suggestive of urin mary jo tract infection, chest x-ray suggestive of left lower lobe pneumonia/atelectasis, CT of the chest showing possible left lower lobe pneumonia. Obviously the patient is presenting with a picture of UTI and left lower lobe pneumonia/sepsis. Again not much information could be obtained from the patient himself and no family members available. Patient will be admitted I saw this patient in consultation and I started the patient empirically on Zosyn. Seen today on 09/11/2024, patient feels more comfortable today, not in any distress, O2 sat is 95% on 7 L high flow nasal cannula. No cough no wheezing no fever no chills no hemoptysis. WBC count is 10.1 hemoglobin 10.5 electrolytes are normal BUN is 50 creatinine holding at 2.59. Blood sugar is 185 CT chest on admission clearly showed left lower lobe pneumonia Objective - Vital Signs Vital signs: Vital Signs Temp 98.9 F 09/11/24 09:09 Pulse 97 09/11/24 09:09 Resp 20 09/11/24 09:09 BP 128/62 09/11/24 09:09 Pulse Ox 95 09/11/24 09:09 FiO2 Intake & Output 09/10/24 09/11/24 09/11/24 18:59 06:59 18:59 Intake Total 118 Output Total 1125 850 200 Balance -6881 -850 -200 Weight 79.5 kg Intake: Oral 118 Output: Urine 1125 850 200 - Exam Physical exam revealed an 84-year-old white male, in no distress, on 7 L high flow nasal cannula O2 sat 95% hemodynamically stable blood pressure 128/62 Head: Atraumatic, normocephalic EENT: PERRLA, EOMI, nonicteric, no neck masses, no JVD, no stridor, moist mucous membranes Chest: Symmetrical chest expansion Lungs: Crackles and rhonchi at the bases. Cardiac: Normal S1-S2, no S3 gallop, no murmur, no bruit Abdomen: Soft nontender no megaly no rebound no guarding good bowel sounds Extremities: No clubbing edema or cyanosis, good pulses bilaterally Musculoskeletal: No deformities and no limitation range of motion Neurologic: Patient is speaking Beninese could not understand what he was trying to say Psychiatric: Normal mood, normal affect, normal mental status examination however difficult to assess mental status considering his language barrier. Skin: No rashes. - Labs CBC & Chem 7: 09/11/24 05:51 09/11/24 05:51 Labs: Abnormal Lab Results - Last 24 Hours (Table) 09/10/24 09/10/24 09/11/24 Range/Units 16:30 20:10 05:51 WBC 10.10 H (4.50-10.00) 10*3/uL RBC 3.58 L (4.40-5.60) 10*6/uL Hgb 10.5 L (13.0-17.0) g/dL Hct 33.4 L (39.6-50.0) % MCHC 31.4 L (32.0-37.0) g/dL MPV 12.4 H (9.5-12.2) fL Immature Gran # 0.11 H (0.00-0.04) 10*3/uL Neutrophils # 9.24 H (1.80-7.70) 10*3/uL Lymphocytes # 0.57 L (0.90-5.00) 10*3/uL Monocytes # 0.16 L (0.20-1.00) 10*3/uL Eosinophils # 0.00 L (0.04-0.35) 10*3/uL Carbon Dioxide (22-30) mmol/L BUN (9-20) mg/dL Creatinine (0.66-1.25) mg/dL Glucose (74-99) mg/dL POC Glucose (mg/dL) 130 H 207 H (70-110) mg/dL Total Protein (6.3-8.2) g/dL Albumin (3.5-5.0) g/dL 09/11/24 09/11/24 09/11/24 Range/Units 05:51 05:59 11:44 WBC (4.50-10.00) 10*3/uL RBC (4.40-5.60) 10*6/uL Hgb (13.0-17.0) g/dL Hct (39.6-50.0) % MCHC (32.0-37.0) g/dL MPV (9.5-12.2) fL Immature Gran # (0.00-0.04) 10*3/uL Neutrophils # (1.80-7.70) 10*3/uL Lymphocytes # (0.90-5.00) 10*3/uL Monocytes # (0.20-1.00) 10*3/uL Eosinophils # (0.04-0.35) 10*3/uL Carbon Dioxide 20 L (22-30) mmol/L BUN 50 H (9-20) mg/dL Creatinine 2.59 H (0.66-1.25) mg/dL Glucose 175 H (74-99) mg/dL POC Glucose (mg/dL) 185 H 232 H (70-110) mg/dL Total Protein 5.8 L (6.3-8.2) g/dL Albumin 2.9 L (3.5-5.0) g/dL Microbiology - Last 24 Hours (Table) 09/09/24 23:18 Blood Culture - Preliminary Blood Assessment and Plan Assessment: Impression: Acute hypoxic respiratory failure Acute urinary tract infection Suspected aspiration pneumonia or hospital-acquired pneumonia as the patient was recently admitted with pneumonia and respiratory failure requiring intubation mechanical ventilation Acute sepsis secondary to above Benign essential hypertension History of bladder cancer History of gout Recommendation: Continue antibiotics/Zosyn Continue oxygen and titrate accordingly Check blood cultures, urine cultures, sputum cultures and change antibiotics accordingly GI and DVT prophylaxis We will continue to follow Prognosis is guarded, may need placement May have to consider swallow evaluation on this patient. Will continue to follow Time with Patient: Less than 30
[2024-09-11 16:39] LABS: Glucose,Whole Blood 263 mg/dL (70-110)
[2024-09-11] MEDS: SODIUM CHLORIDE 0.9% 1,000 ML IV SCH (17:46)
[2024-09-11 19:55] LABS: Glucose,Whole Blood 231 mg/dL (70-110)
[2024-09-11] MEDS ORDERED: DEXTROSE 50% SYRINGE 50 ML IVP PRN ×2 (20:13)
[2024-09-11] MEDS: INSULIN LISPRO (HumaLOG) 100 UNIT/ML 10 mL VL SQ SCH (21:47)
--- NOTE | 2024-09-11 22:10 | P.CONS ---
History of Present Illness - Reason for Consult Consult date: 09/11/24 CAP Requesting physician: Dm Ceballos - Chief Complaint Fever and shortness of breath x few days - History of Present Illness Patient is 84-year-old male with a past medical history taken for bladder/colon cancer, hypertension gout, recent prolonged stay at [facility] for respiratory failure requiring intubation and prolonged hospital stay, patient has been brought to the hospital 2 days ago as a transfer from outside facility for evaluation of increasing shortness of breath and fever on presentation to this facility patient did have temperature of 101.8 F no fever have recorded subsequently patient was not significantly tachycardic or hypotensive he was hypoxic requiring high flow nasal oxygen patient did have a white count of 18,000 with a left shift BUN and creatinine has been elevated liver enzymes are normal did have a positive UA blood urine culture obtained currently pending patient did have a chest x-ray left base consolidation subsequently did have a CT of the chest with evidence of left lower lobe pneumonia patient has been treated with Zosyn and Zithromax infectious disease was consulted last night concerning for community-acquired pneumonia most information has been obtained from review the chart and talking to the sitter at the bedside as patient cannot provide reliable history he does not speak Bulgarian and a family member at the bedside Review of Systems Positive points has been mentioned in HPI complete review could not be obtained because of his underlying mental status Past Medical History Past Medical History: Cancer, Hypertension Additional Past Medical History / Comment(s): gout, bladder cancer, colon cancer, intubated in July/August 2024 for respiratory failure History of Any Multi-Drug Resistant Organisms: None Reported Past Surgical History: No Surgical Hx Reported Additional Past Surgical History / Comment(s): Urostomy placement Past Anesthesia/Blood Transfusion Reactions: No Reported Reaction Past Psychological History: No Psychological Hx Reported Smoking Status: Current every day smoker Past Alcohol Use History: Occasional Past Drug Use History: None Reported - Past Family History Brother(s) Family Medical History: Cancer Additional Family Medical History / Comment(s): passed young Medications and Allergies Home Medications Medication Instructions Recorded Confirmed Type Atorvastatin [Lipitor] 40 mg PO DAILY 09/10/24 09/10/24 History Brimonidine Tartrate/Timolol 1 drop BOTH EYES TID 09/10/24 09/10/24 History [Combigan 0.2%-0.5% Eye Drops] Cetirizine HCl 10 mg PO DAILY 09/10/24 09/10/24 History Cyanocobalamin (Vitamin B-12) 1,000 mcg PO DAILY 09/10/24 09/10/24 History [Vitamin B-12] Docusate [Colace] 100 mg PO BID 09/10/24 09/10/24 History Dorzolamide 2% [Trusopt 2%] 1 drops BOTH EYES TID 09/10/24 09/10/24 History Ferrous Sulfate [Feosol] 325 mg PO DAILY 09/10/24 09/10/24 History HYDROcodone/APAP 7.5-325MG [[place] 1 tab PO Q6H PRN 09/10/24 09/10/24 History 7.5-325] LORazepam [Ativan] 0.5 mg PO Q12H PRN 09/10/24 09/10/24 History Latanoprostene Bunod [Vyzulta] 1 drop BOTH EYES HS 09/10/24 09/10/24 History Levothyroxine Sodium [Synthroid] 175 mcg PO DAILY 09/10/24 09/10/24 History Metoprolol Succinate (ER) [Toprol 100 mg PO DAILY 09/10/24 09/10/24 History Xl] Pantoprazole [Protonix] 40 mg PO DAILY 09/10/24 09/10/24 History QUEtiapine [SEROquel] 12.5 mg PO HS 09/10/24 09/10/24 History allopurinoL [Zyloprim] 300 mg PO DAILY 09/10/24 09/10/24 History cilostazoL [Pletal] 100 mg PO BID 09/10/24 09/10/24 History Allergies Allergy/AdvReac Type Severity Reaction Status Date / Time No Known Allergies Allergy Verified 09/10/24 09:46 Physical Exam Vitals: Vital Signs Temp Pulse Pulse Resp BP BP Pulse Ox 09/11/24 09:09 98.9 F 97 20 128/62 95 09/11/24 08:00 97 20 09/11/24 07:58 85 18 94 L 09/11/24 04:00 97.7 F 92 20 112/47 94 L 09/11/24 02:00 84 20 09/11/24 00:00 97.7 F 75 20 102/51 95 09/10/24 20:55 78 09/10/24 20:39 81 09/10/24 20:00 97.6 F 90 20 96/58 94 L 09/10/24 15:57 80 09/10/24 15:47 76 09/10/24 15:22 98 09/10/24 15:19 97.7 F 78 18 128/69 100 09/10/24 13:10 78 20 131/84 94 L 09/10/24 12:38 71 20 102/55 96 Intake and Output 09/10/24 09/11/24 09/11/24 22:59 06:59 14:59 Intake Total 118 Output Total 375 850 200 Balance -257 850 -200 Intake: Oral 118 Output: Urine 375 850 200 Other: Weight 79.5 kg GENERAL DESCRIPTION: Elderly male lying in bed, no distress. No tachypnea or accessory muscle of respiration use. HEENT: Shows Pallor , no scleral icterus. Oral mucous membrane is dry. NECK: Trachea central, no thyromegaly. LUNGS: Unlabored breathing. Decreased breath sounds at base HEART: S1, S2, regular rate and rhythm. No loud murmur ABDOMEN: Soft, no tenderness , guarding or rigidity, no organomegaly EXTREMITIES: No edema of feet. SKIN: No rash, no masses palpable. NEUROLOGICAL: The patient is lethargic but arousable mood and affect normal. Results CBC & Chem 7: 09/11/24 05:51 09/11/24 05:51 Labs: Abnormal Lab Results - Last 24 Hours (Table) 09/10/24 09/10/24 09/11/24 Range/Units 16:30 20:10 05:51 WBC 10.10 H (4.50-10.00) 10*3/uL RBC 3.58 L (4.40-5.60) 10*6/uL Hgb 10.5 L (13.0-17.0) g/dL Hct 33.4 L (39.6-50.0) % MCHC 31.4 L (32.0-37.0) g/dL MPV 12.4 H (9.5-12.2) fL Immature Gran # 0.11 H (0.00-0.04) 10*3/uL Neutrophils # 9.24 H (1.80-7.70) 10*3/uL Lymphocytes # 0.57 L (0.90-5.00) 10*3/uL Monocytes # 0.16 L (0.20-1.00) 10*3/uL Eosinophils # 0.00 L (0.04-0.35) 10*3/uL Carbon Dioxide (22-30) mmol/L BUN (9-20) mg/dL Creatinine (0.66-1.25) mg/dL Glucose (74-99) mg/dL POC Glucose (mg/dL) 130 H 207 H (70-110) mg/dL Total Protein (6.3-8.2) g/dL Albumin (3.5-5.0) g/dL 09/11/24 09/11/24 09/11/24 Range/Units 05:51 05:59 11:44 WBC (4.50-10.00) 10*3/uL RBC (4.40-5.60) 10*6/uL Hgb (13.0-17.0) g/dL Hct (39.6-50.0) % MCHC (32.0-37.0) g/dL MPV (9.5-12.2) fL Immature Gran # (0.00-0.04) 10*3/uL Neutrophils # (1.80-7.70) 10*3/uL Lymphocytes # (0.90-5.00) 10*3/uL Monocytes # (0.20-1.00) 10*3/uL Eosinophils # (0.04-0.35) 10*3/uL Carbon Dioxide 20 L (22-30) mmol/L BUN 50 H (9-20) mg/dL Creatinine 2.59 H (0.66-1.25) mg/dL Glucose 175 H (74-99) mg/dL POC Glucose (mg/dL) 185 H 232 H (70-110) mg/dL Total Protein 5.8 L (6.3-8.2) g/dL Albumin 2.9 L (3.5-5.0) g/dL Assessment and Plan (1) Pneumonia Current Visit: Yes Status: Acute Code(s): J18.9 - PNEUMONIA, UNSPECIFIED ORGANISM SNOMED Code(s): 760799565 (2) Sepsis Current Visit: Yes Status: Acute Code(s): A41.9 - SEPSIS, UNSPECIFIED ORGANISM SNOMED Code(s): 34254656 (3) UTI (urinary tract infection) Current Visit: Yes Status: Acute Code(s): N39.0 - URINARY TRACT INFECTION, SITE NOT SPECIFIED SNOMED Code(s): 35336650 Plan: 1patient presented hospital with sepsis in this patient who did have a fever tachycardia elevated white count meeting currently for SIRS/sepsis source likely left lower lobe pneumonia in this patient who did have a history of recent hospitalization will need to cover for resistant gram-negative to be the likely pathogen rather than community acquired pathogen he also has significantly positive UA possible component of urinary source not entirely excluded however it is very hard to get any history from this patient regarding any urinary symptoms 2try to obtain sputum for Gram stain culture blood and urine cultures will be followed 3patient empirically treated with a Zosyn while waiting for the workup to be completed We will follow on clinical condition and cultures to further adjust medication if needed Thank you for this consultation we will follow the patient along with you Dictation was produced using [employer] dictation software. please excuse any grammatical, word or spelling errors.
[2024-09-12] MEDS: MORPHINE SULFATE 4 MG/ML SYRINGE IV PRN (05:02)
[2024-09-12 06:05] LABS: Glucose,Whole Blood 204 mg/dL (70-110)
[2024-09-12] MEDS: PANTOPRAZOLE 40 MG TABLET PO SCH (09:07)
--- NOTE | 2024-09-12 09:35 | P.PN ---
Subjective HISTORY OF PRESENT ILLNESS: Patient is a pleasant 84-year-old male with a history of respiratory failure with recent hospitalization at [facility] requiring intubation who presented secondary to shortness of breath. Patient poor historian and does not speak Cameroonian however nephew is there to translate. Patient stating he wants to go home and not answering questions even through translation. Apparently he had lengthy hospitalization at [facility] however unsure of any definitive diagnosis. He was found to have fever on presentation with UTI and chest x-ray consistent with left lower lobe pneumonia. CT of the chest showed possible left lower lobe pneumonia. Through translation he denies any chest pain or pressure. He denies any prior cardiac history. Cardiology was consulted secondary to CHF and hypotension. Patient has had intermittent lower blood pressures in the 80s to 90s systolic. White blood cell count 18, hemoglobin 10.9, D-dimer 2.0, creatinine 2.3, 2.5, troponin 0.015, 0.012 and proBNP 1970. EKG shows normal sinus rhythm normal axis nonspecific minimal ST depressions in the inferior and lateral leads. 09/11 Patient seen and examined. No issues per nursing. He does have a one-to-one sitter to redirect patient. Creatinine stable at 2.5. Concern of patient aspirating therefore patient n.p.o. and awaiting swallow eval. White blood cell count coming down to 10. 09/12/2024 Patient examined this morning at the bedside. No family present. Mild language barrier present. toll test desk worker at the bedside. Patient currently denies CP or SOB. Vital signs are stable. Patient working with physical therapy at the time of examination. PHYSICAL EXAM: VITAL SIGNS: Reviewed. GENERAL: Well-developed in no acute distress. NECK: Supple. No JVD or thyromegaly LUNGS: Respirations even and unlabored. Lungs essentially clear to auscultation bilaterally. HEART: Regular rate and rhythm. S1 and S2 heard. EXTREMITIES: Normal range of motion. No clubbing or cyanosis. Peripheral pulses intact. No lower extremity edema ASSESSMENT: Acute on chronic respiratory failure Hypotension related to sepsis Elevated proBNP, chronic diastolic heart failure Sepsis Coronary artery calcifications noted on CT Hypertension on home metoprolol Urinary tract infection Possible pneumonia PLAN: Still awaiting records from [place] No clinical signs of CHF Continue current cardiac medications Continue to monitor BP Further recommendations pending patient course Nurse practitioner note has been reviewed by physician. Signing provider agrees with the documented findings, assessment, and plan of care documented by HOME ECONOMICS TEACHER as a scribe. Objective - Vital Signs Vital signs: Vital Signs Temp 97.7 F 09/12/24 04:00 Pulse 92 09/12/24 08:12 Resp 19 09/12/24 04:00 BP 143/69 09/12/24 04:00 Pulse Ox 95 09/12/24 08:01 FiO2 Intake & Output 09/11/24 09/12/24 09/12/24 18:59 06:59 18:59 Intake Total 118 Output Total 700 600 Balance -582 -600 Weight 84.5 kg Intake: Oral 118 Output: Urine 700 600 - Labs CBC & Chem 7: 09/11/24 05:51 09/11/24 05:51 Labs: Abnormal Lab Results - Last 24 Hours (Table) 09/11/24 09/11/24 09/11/24 Range/Units 05:51 11:44 16:37 POC Glucose (mg/dL) 232 H 263 H (70-110) mg/dL Procalcitonin 1.99 H (0.02-0.50) ng/mL 09/11/24 09/12/24 Range/Units 19:52 06:03 POC Glucose (mg/dL) 231 H 204 H (70-110) mg/dL Procalcitonin (0.02-0.50) ng/mL Microbiology - Last 24 Hours (Table) 09/09/24 23:18 Blood Culture - Preliminary Blood
[2024-09-12 11:46] LABS: Glucose,Whole Blood 181 mg/dL (70-110)
--- NOTE | 2024-09-12 12:39 | P.PN ---
Subjective Progress Note Date: 09/12/24 This is an 84-year-old white male, poor historian, patient does not speak any Croatian, supposedly the patient was admitted recently to [facility] with acute hypoxic respiratory failure requiring intubation mechanical ventilation. It is unknown how long was the patient intubated and mechanically ventilated, but supposedly the patient had pneumonia and urinary tract infection and he was recently discharged home. Seen again recently at [facility] or [facility], and he was evaluated for shortness of breath, and fever, no workup could be seen on the chart on this patient, and no family around for getting more information on the patient, however patient was noted to have significant leukocytosis with WBC count of 18.0 hemoglobin 10.9, abnormal renal profile with a BUN of 42 creatinine 2.37 abnormal urinalysis suggestive of urinary tract infection, chest x-ray suggestive of left lower lobe pneumonia/atelectasis, CT of the chest showing possible left lower lobe pneumonia. Obviously the patient is presenting with a picture of UTI and left lower lobe pneumonia/sepsis. Again not much information could be obtained from the patient himself and no family members available. Patient will be admitted I saw this patient in consultation and I started the patient empirically on Zosyn. Seen today on 09/11/2024, patient feels more comfortable today, not in any distress, O2 sat is 95% on 7 L high flow nasal cannula. No cough no wheezing no fever no chills no hemoptysis. WBC count is 10.1 hemoglobin 10.5 electrolytes are normal BUN is 50 creatinine holding at 2.59. Blood sugar is 185 CT chest on admission clearly showed left lower lobe pneumonia The patient is seen today September 12, 2024 in follow-up on the selective care unit. He is awake and alert in no acute distress. Resting in bed. scratch brusher at the bedside. He is maintaining O2 saturations in the 90s on 4 L/min per nasal cannula. He is afebrile. Hemodynamically stable. Glucose 181. He remains on Augmentin. Continued on DuoNeb inhalations. Continued on IV Solu-Medrol. Heparin for DVT prophylaxis. Objective - Vital Signs Vital signs: Vital Signs Temp 98.8 F 09/12/24 11:45 Pulse 84 09/12/24 12:04 Resp 18 09/12/24 11:45 BP 116/57 09/12/24 11:45 Pulse Ox 93 L 09/12/24 11:45 FiO2 Intake & Output 09/11/24 09/12/24 09/12/24 18:59 06:59 18:59 Intake Total 118 118 Output Total 700 600 Balance -582 -600 118 Weight 84.5 kg Intake: Oral 118 118 Output: Urine 700 600 - Exam GENERAL EXAM: Alert, active, 84-year-old male, on 4 L nasal cannula, comfortable in no apparent distress. HEAD: Normocephalic. EYES: Normal reaction of pupils, equal size. NOSE: Clear with pink turbinates. THROAT: No erythema or exudates. NECK: No masses, no JVD. CHEST: No chest wall deformity. LUNGS: Equal air entry with few scattered rhonchi. CVS: S1 and S2 normal with no audible murmur, regular rhythm. ABDOMEN: No hepatosplenomegaly, normal bowel sounds, no guarding or rigidity. SPINE: No scoliosis or deformity SKIN: No rashes CENTRAL NERVOUS SYSTEM: No focal deficits, tone is normal in all 4 extremities. EXTREMITIES: There is no peripheral edema. No clubbing, no cyanosis. Peripheral pulses are intact. - Labs CBC & Chem 7: 09/11/24 05:51 09/11/24 05:51 Labs: Abnormal Lab Results - Last 24 Hours (Table) 09/11/24 09/11/24 09/11/24 Range/Units 05:51 16:37 19:52 POC Glucose (mg/dL) 263 H 231 H (70-110) mg/dL Procalcitonin 1.99 H (0.02-0.50) ng/mL 09/12/24 09/12/24 Range/Units 06:03 11:45 POC Glucose (mg/dL) 204 H 181 H (70-110) mg/dL Procalcitonin (0.02-0.50) ng/mL Microbiology - Last 24 Hours (Table) 09/10/24 23:55 Urine Culture - Preliminary Urine,Ureter 09/09/24 23:18 Blood Culture - Preliminary Blood Assessment and Plan Assessment: Acute hypoxic respiratory failure secondary to suspected aspiration pneumonia or hospital-acquired pneumonia as the patient was recently admitted with pneumonia and respiratory failure requiring intubation mechanical ventilation Acute urinary tract infection, culture pending Acute sepsis secondary to above, blood culture pending Benign essential hypertension History of bladder cancer History of gout Plan: The patient was seen and evaluated Medications reviewed Will discontinue Zosyn Initiate Augmentin Discontinue IV Solu-Medrol Initiated prednisone taper Blood and urine cultures pending Heparin for DVT prophylaxis Increase his activity as tolerated Titrate down the FiO2 as tolerated Plan is for ECF at discharge I have personally seen and examined the patient, performed the documentation and the assessment and plan as written. Number of minutes spent on the visit: 10 Dictation was produced using [employer] dictation software. Please excuse any grammatical, word or spelling errors.
--- NOTE | 2024-09-12 15:04 | FL ---
Exam Date: 09/12/2024 2:14 PM. Modified barium swallow for dysphagia. Consistencies administered: Various consistency of barium. No images were sent to PACS. Please see speech pathology report. DAP: 131.48 mGym2 Gycm[facility], , 09/12/2024 3:01 PM
[2024-09-12 16:49] LABS: Glucose,Whole Blood 206 mg/dL (70-110)
--- NOTE | 2024-09-12 16:52 | PN ---
PROGRESS NOTE SUBJECTIVE: An 84-year-old white male. He is in for left lower lobe pneumonia. He went down from 8 L down to 5 L overnight. He is breathing fairly much better. He is on IV antibiotics. Pulmonary is on breathing treatments, started on steroids. He is 94%-95% on high-flow 5 L, which is improved. OBJECTIVE: VITAL SIGNS: Temperature 97.5, pulse 60-80, respiratory rate 18-25. CARDIOVASCULAR: S1, S2. LUNGS: Decreased breath sounds x4. HEENT: He has a language barrier. HEMATOLOGY: Negative Homans. NEUROLOGIC: Cranial nerves intact. ASSESSMENT AND PLAN: He has left lower lobe pneumonia, chronic obstructive pulmonary disease, acute hypoxemic respiratory failure, diastolic heart failure. Prognosis is guarded. Continue current treated with antibiotics, steroids, updrafts. Prognosis guarded. MMODL / IJN: [id number] /
[2024-09-12] MEDS: LORazepam 1 MG/0.5 ML VIAL IV PRN (18:00)
[2024-09-12] MEDS: AMOXIC-POT CLAV 875-125MG 1 EACH TAB PO SCH (20:04)
[2024-09-12 20:07] LABS: Glucose,Whole Blood 93 mg/dL (70-110)
--- NOTE | 2024-09-13 00:43 | PN ---
PROGRESS NOTE SUBJECTIVE: An 84-year-old white male with aspiration pneumonia, remains on DuoNeb, Zyloprim, Augmentin orally for antibiotics, vitamin B12, [place], Synthroid, Ativan p.r.n. for anxiety. OBJECTIVE: VITAL SIGNS: Temperature 98.1, respiratory rate 16-18, blood pressure 149/72, O2 97% on 4 L, down from 5 yesterday. He had some mental status changes, but not sure if that is the language barrier or he actually was confused. He appears to be stable tonight. ASSESSMENT AND PLAN: Aspiration pneumonia and chronic obstructive pulmonary disease, metabolic encephalopathy. Continue with IV antibiotics updrafts, steroids. Prognosis is guarded. PT, OT. MMODL / IJN: [id number] /
[2024-09-13 05:57] LABS: Glucose,Whole Blood 116 mg/dL (70-110)
[2024-09-13] MEDS: predniSONE 20 MG TAB PO SCH (08:34)
--- NOTE | 2024-09-13 08:57 | P.PN ---
Subjective HISTORY OF PRESENT ILLNESS: Patient is a pleasant 84-year-old male with a history of respiratory failure with recent hospitalization at [facility] requiring intubation who presented secondary to shortness of breath. Patient poor historian and does not speak East Timorese however nephew is there to translate. Patient stating he wants to go home and not answering questions even through translation. Apparently he had lengthy hospitalization at [facility] however unsure of any definitive diagnosis. He was found to have fever on presentation with UTI and chest x-ray consistent with left lower lobe pneumonia. CT of the chest showed possible left lower lobe pneumonia. Through translation he denies any chest pain or pressure. He denies any prior cardiac history. Cardiology was consulted secondary to CHF and hypotension. Patient has had intermittent lower blood pressures in the 80s to 90s systolic. White blood cell count 18, hemoglobin 10.9, D-dimer 2.0, creatinine 2.3, 2.5, troponin 0.015, 0.012 and proBNP 1970. EKG shows normal sinus rhythm normal axis nonspecific minimal ST depressions in the inferior and lateral leads. 09/11 Patient seen and examined. No issues per nursing. He does have a one-to-one sitter to redirect patient. Creatinine stable at 2.5. Concern of patient aspirating therefore patient n.p.o. and awaiting swallow eval. White blood cell count coming down to 10. 09/12/2024 Patient examined this morning at the bedside. No family present. Mild language barrier present. electronic maintenance supervisor at the bedside. Patient currently denies CP or SOB. Vital signs are stable. Patient working with physical therapy at the time of examination. 09/13/2024 Patient examined this morning to bedside. He is resting comfortably in bed. He denies any complaints of chest pain or shortness of breath. Vital signs are st able. PHYSICAL EXAM: VITAL SIGNS: Reviewed. GENERAL: Well-developed in no acute distress. NECK: Supple. No JVD or thyromegaly LUNGS: Respirations even and unlabored. Lungs essentially clear to auscultation bilaterally. HEART: Regular rate and rhythm. S1 and S2 heard. EXTREMITIES: Normal range of motion. No clubbing or cyanosis. Peripheral pulses intact. No lower extremity edema ASSESSMENT: Acute on chronic respiratory failure Hypotension related to sepsis Elevated proBNP, chronic diastolic heart failure Sepsis Coronary artery calcifications noted on CT Hypertension on home metoprolol Urinary tract infection Possible pneumonia History of metastatic bladder cancer status post surgery and immunotherapy, off immunotherapy for 4 years History of CAD History of AAA PLAN: Will review records obtained from [facility] No clinical signs of CHF Continue current cardiac medications Continue to monitor BP Patient is stable from a cardiac standpoint with no further inpatient recomm endations Nurse practitioner note has been reviewed by physician. Signing provider agrees with the documented findings, assessment, and plan of care documented by WASHING MACHINE OPERATOR as a scribe. Objective - Vital Signs Vital signs: Vital Signs Temp 98.0 F 09/13/24 08:33 Pulse 81 09/13/24 08:51 Resp 18 09/13/24 08:33 BP 176/84 09/13/24 08:33 Pulse Ox 95 09/13/24 08:51 FiO2 Intake & Output 09/12/24 09/13/24 09/13/24 18:59 06:59 18:59 Intake Total 236 20 Output Total 200 1350 Balance 36 -1330 Weight 82 kg Intake: IV 20 Invasive Line 3 20 Oral 236 Output: Urine 200 1350 - Labs CBC & Chem 7: 09/11/24 05:51 09/11/24 05:51 Labs: Abnormal Lab Results - Last 24 Hours (Table) 09/12/24 09/12/24 09/13/24 Range/Units 11:45 16:47 05:56 POC Glucose (mg/dL) 181 H 206 H 116 H (70-110) mg/dL Microbiology - Last 24 Hours (Table) 09/09/24 23:18 Blood Culture - Preliminary Blood 09/10/24 23:55 Urine Culture - Preliminary Urine,Ureter
[2024-09-13 11:24] LABS: Glucose,Whole Blood 188 mg/dL (70-110)
--- NOTE | 2024-09-13 12:32 | P.PN ---
Subjective Progress Note Date: 09/13/24 Principal diagnosis: Acute hypoxic respiratory failure with acute UTI and possible aspiration pneumonia./Acute sepsis. This is an 84-year-old white male, poor historian, patient does not speak any Tajik, supposedly the patient was admitted recently to [facility] with acute hypoxic respiratory failure requiring intubation mechanical ventilation. It is unknown how long was the patient intubated and mechanically ventilated, but supposedly the patient had pneumonia and urinary tract infection and he was recently discharged home. Seen again recently at [facility] or [facility], and he was evaluated for shortness of breath, and fever, no workup could be seen on the chart on this patient, and no family around for getting more information on the patient, however patient was noted to have significant leukocytosis with WBC count of 18.0 hemoglobin 10.9, abnormal renal profile with a BUN of 42 creatinine 2.37 abnormal urinalysis suggestive of urin mary jo tract infection, chest x-ray suggestive of left lower lobe pneumonia/atelectasis, CT of the chest showing possible left lower lobe pneumonia. Obviously the patient is presenting with a picture of UTI and left lower lobe pneumonia/sepsis. Again not much information could be obtained from the patient himself and no family members available. Patient will be admitted I saw this patient in consultation and I started the patient empirically on Zosyn. Seen today on 09/11/2024, patient feels more comfortable today, not in any distress, O2 sat is 95% on 7 L high flow nasal cannula. No cough no wheezing no fever no chills no hemoptysis. WBC count is 10.1 hemoglobin 10.5 electrolytes are normal BUN is 50 creatinine holding at 2.59. Blood sugar is 185 CT chest on admission clearly showed left lower lobe pneumonia The patient is seen today September 12, 2024 in follow-up on the selective care unit. He is awake and alert in no acute distress. Resting in bed. hogshead press operator at the bedside. He is maintaining O2 saturations in the 90s on 4 L/min per nasal cannula. He is afebrile. Hemodynamically stable. Glucose 181. He remains on Augmentin. Continued on DuoNeb inhalations. Continued on IV Solu-Medrol. Heparin for DVT prophylaxis. Seen today on 09/09/2024, patient is quite comfortable does not seem to be in any distress, no cough no wheezing no shortness of breath, is intermittently confused, he has a sitter at bedside. Remains on bronchodilators, he is also on oral Augmentin, DuoNeb, IV Solu-Medrol which could be transition to oral prednisone, at 40 mg daily. Patient should be considered for possible discharge planning. Objective - Vital Signs Vital signs: Vital Signs Temp 97.9 F 09/13/24 11:12 Pulse 70 09/13/24 11:12 Resp 17 09/13/24 11:12 BP 158/89 09/13/24 11:12 Pulse Ox 94 L 09/13/24 11:12 FiO2 Intake & Output 09/12/24 09/13/24 09/13/24 18:59 06:59 18:59 Intake Total 236 20 190 Output Total 200 1350 550 Balance 36 -1330 -360 Weight 82 kg Intake: IV 20 10 Invasive Line 3 20 10 Oral 236 180 Output: Urine 200 1350 550 - Exam Physical exam revealed an 84-year-old white male, in no distress, on 2 L nasal cannula with O2 sat of 95% Head: Atraumatic, normocephalic EENT: PERRLA, EOMI, nonicteric, no neck masses, no JVD, no stridor, moist mucous membranes Chest: Symmetrical chest expansion Lungs: Diminished breath sound bilaterally no rhonchi no wheezes Cardiac: Normal S1-S2, no S3 gallop, no murmur, no bruit Abdomen: Soft nontender no megaly no rebound no guarding good bowel sounds Extremities: No clubbing edema or cyanosis, good pulses bilaterally Musculoskeletal: No deformities and no limitation range of motion Neurologic: No gross focal neurologic deficit, patient is speaking German. Psychiatric: Normal mood, normal affect, normal mental status examination Skin: No rash - Labs CBC & Chem 7: 09/11/24 05:51 09/11/24 05:51 Labs: Abnormal Lab Results - Last 24 Hours (Table) 09/12/24 09/13/24 09/13/24 Range/Units 16:47 05:56 11:23 POC Glucose (mg/dL) 206 H 116 H 188 H (70-110) mg/dL Microbiology - Last 24 Hours (Table) 09/09/24 23:18 Blood Culture - Preliminary Blood 09/10/24 23:55 Urine Culture - Preliminary Urine,Ureter Assessment and Plan Assessment: Impression: Acute hypoxic respiratory failure Acute urinary tract infection Suspected aspiration pneumonia or hospital-acquired pneumonia as the patient was recently admitted with pneumonia and respiratory failure requiring intubation mechanical ventilation presently on Augmentin Acute sepsis secondary to above Benign essential hypertension History of bladder cancer History of gout Recommendation: Continue Augmentin Change methylprednisolone to prednisone 40 mg daily Continue oxygen and titrate accordingly Blood cultures and urine cultures noted, negative so far. GI and DVT prophylaxis Consider discharge planning to ECF Will continue to follow Time with Patient: Less than 30
--- NOTE | 2024-09-13 15:27 | P.PN ---
Subjective Progress Note Date: 09/12/24 Principal diagnosis: Reason for follow-up is UTI/pneumonia Patient is 84-year-old male with a past medical history taken for bladder/colon cancer, hypertension gout, recent prolonged stay at [facility] for respiratory failure requiring intubation and prolonged hospital stay, patient has been brought to the hospital 2 days ago as a transfer from outside facility for evaluation of increasing shortness of breath and fever and has been diagnosed with a pneumonia question of UTI. On today's evaluation that is 09/12/2024,the patient did have resolution of his fever and is afebrile today he seemed to be breathing comfortably on the 2 L current oxygen he is more awake and alert but hard to communicate vomiting or diarrhea reported by the sitter at the bedside. Patient did not have a lab draw today white count was 10.10 yesterday Objective - Vital Signs Vital signs: Vital Signs Temp 98.8 F 09/12/24 11:45 Pulse 84 09/12/24 12:04 Resp 18 09/12/24 11:45 BP 116/57 09/12/24 11:45 Pulse Ox 93 L 09/12/24 11:45 FiO2 Intake & Output 09/11/24 09/12/24 09/12/24 18:59 06:59 18:59 Intake Total 118 118 Output Total 700 600 Balance -582 -600 118 Weight 84.5 kg Intake: Oral 118 118 Output: Urine 700 600 - Exam GENERAL DESCRIPTION: An elderly male lying in bed in no distress RESPIRATORY SYSTEM: Unlabored breathing , decreased breath sounds at bases HEART: S1 S2 regular rate and rhythm , ABDOMEN: Soft , no tenderness EXTREMITIES: No edema feet - Labs CBC & Chem 7: 09/11/24 05:51 09/11/24 05:51 Labs: Abnormal Lab Results - Last 24 Hours (Table) 09/11/24 09/11/24 09/11/24 Range/Units 05:51 16:37 19:52 POC Glucose (mg/dL) 263 H 231 H (70-110) mg/dL Procalcitonin 1.99 H (0.02-0.50) ng/mL 09/12/24 09/12/24 Range/Units 06:03 11:45 POC Glucose (mg/dL) 204 H 181 H (70-110) mg/dL Procalcitonin (0.02-0.50) ng/mL Microbiology - Last 24 Hours (Table) 09/10/24 23:55 Urine Culture - Preliminary Urine,Ureter 09/09/24 23:18 Blood Culture - Preliminary Blood Assessment and Plan (1) Pneumonia Current Visit: Yes Status: Acute Code(s): J18.9 - PNEUMONIA, UNSPECIFIED ORGANISM SNOMED Code(s): 820594841 (2) Sepsis Current Visit: Yes Status: Acute Code(s): A41.9 - SEPSIS, UNSPECIFIED ORGANISM SNOMED Code(s): 57235844 (3) UTI (urinary tract infection) Current Visit: Yes Status: Acute Code(s): N39.0 - URINARY TRACT INFECTION, SITE NOT SPECIFIED SNOMED Code(s): 60437890 Plan: 1patient presented hospital with sepsis in this patient who did have a fever tachycardia elevated white count meeting currently for SIRS/sepsis source likely left lower lobe pneumonia in this patient who did have a history of recent hospitalization will need to cover for resistant gram-negative to be the likely pathogen rather than community acquired pathogen he also has significantly positive UA possible component of urinary source not entirely excluded however it is very hard to get any history from this patient regarding any urinary symptoms 2 sputum for Gram stain culture not collected, blood and urine cultures currently pending 3patient and biotic has been switched over to Augmentin by pulmonary to continue for now while waiting for the culture to finalize Dictation was produced using [employer] dictation software. please excuse any grammatical, word or spelling errors. Time with Patient: Less than 30
--- NOTE | 2024-09-13 15:28 | P.PN ---
Subjective Progress Note Date: 09/13/24 Principal diagnosis: Reason for follow-up is UTI/pneumonia Patient is 84-year-old male with a past medical history taken for bladder/colon cancer, hypertension gout, recent prolonged stay at [facility] for respiratory failure requiring intubation and prolonged hospital stay, patient has been brought to the hospital 2 days ago as a transfer from outside facility for evaluation of increasing shortness of breath and fever and has been diagnosed with a pneumonia question of UTI. On today's evaluation that is 09/13/2024,the patient remains to be afebrile, patient is on room air not requiring supplemental oxygen and seem to be breathing comfortably the patient is sleepy today did not provide any history no vomiting diarrhea no change reported by the sitter at the bedside. Patient did not have any lab draw today urine is growing Klebsiella sensitive to Augmentin and also growing Enterococcus that is ampicillin and vancomycin resistant Objective - Vital Signs Vital signs: Vital Signs Temp 97.9 F 09/13/24 11:12 Pulse 74 09/13/24 15:09 Resp 18 09/13/24 15:09 BP 181/91 09/13/24 15:09 Pulse Ox 93 L 09/13/24 15:17 FiO2 Intake & Output 09/12/24 09/13/24 09/13/24 18:59 06:59 18:59 Intake Total 236 20 380 Output Total 200 1350 950 Balance 36 1330 -570 Weight 82 kg Intake: IV 20 20 Invasive Line 3 20 20 Oral 236 360 Output: Urine 200 1350 950 - Exam GENERAL DESCRIPTION: An elderly male lying in bed in no distress RESPIRATORY SYSTEM: Unlabored breathing , decreased breath sounds at bases HEART: S1 S2 regular rate and rhythm , ABDOMEN: Soft , no tenderness EXTREMITIES: No edema feet - Labs CBC & Chem 7: 09/11/24 05:51 09/11/24 05:51 Labs: Abnormal Lab Results - Last 24 Hours (Table) 09/12/24 09/13/24 09/13/24 Range/Units 16:47 05:56 11:23 POC Glucose (mg/dL) 206 H 116 H 188 H (70-110) mg/dL Microbiology - Last 24 Hours (Table) 09/10/24 23:55 Urine Culture - Final Urine,Ureter Enterococ casseliflavus(grp d) Klebsiella pneumoniae 09/09/24 23:18 Blood Culture - Preliminary Blood Assessment and Plan (1) Pneumonia Current Visit: Yes Status: Acute Code(s): J18.9 - PNEUMONIA, UNSPECIFIED ORGANISM SNOMED Code(s): 648869236 (2) Sepsis Current Visit: Yes Status: Acute Code(s): A41.9 - SEPSIS, UNSPECIFIED ORG ANISM SNOMED Code(s): 56770539 (3) UTI (urinary tract infection) Current Visit: Yes Status: Acute Code(s): N39.0 - URINARY TRACT INFECTION, SITE NOT SPECIFIED SNOMED Code(s): 43656218 Plan: 1patient presented hospital with sepsis in this patient who did have a fever tachycardia elevated white count meeting currently for SIRS/sepsis source likely left lower lobe pneumonia in this patient who did have a history of recent hospitalization will need to cover for resistant gram-negative to be the likely pathogen rather than community acquired pathogen he also has significantly positive UA possible component of urinary source not entirely excluded however it is very hard to get any history from this patient regarding any urinary symptoms 2 sputum for Gram stain culture not collected, blood culture has been negative and urine cultures currently growing Klebsiella as well as Enterococcus that is ampicillin and vancomycin resistant 3patient currently on oral Augmentin to continue will add Zyvox to cover for th e VRE Dictation was produced using [employer] dictation software. please excuse any grammatical, word or spelling errors. Time with Patient: Less than 30
--- NOTE | 2024-09-13 16:14 | XR ---
EXAMINATION TYPE: XR chest 1V portable DATE OF EXAM: 09/13/2024 3:56 PM COMPARISON: 09/09/2024 CLINICAL INDICATION: Male, 84 years old with history of pulm edema, TECHNIQUE: XR chest 1V portable view(s) obtained. FINDINGS: The heart size is normal. The pulmonary vasculature is normal. The lungs are clear. IMPRESSION: 1. No acute pulmonary process. [facility], , 09/13/2024 4:12 PM
[2024-09-13 16:47] LABS: Glucose,Whole Blood 145 mg/dL (70-110)
[2024-09-13] MEDS: LINEZOLID 600 MG TAB PO SCH (16:57)
[2024-09-13 20:01] LABS: Glucose,Whole Blood 236 mg/dL (70-110)
[2024-09-14 06:06] LABS: Glucose,Whole Blood 99 mg/dL (70-110)
--- NOTE | 2024-09-14 10:58 | CA ---
Transthoracic Echo Report Name: Damon العراقي Age: 84 Gender: M : 1940 Exam Date: 09/13/2024 16:34 Exam Location: [place] [facility] Ht (in): 65 Wt (lb): 180 Ordering Physician: Dm Ceballos MD Attending/Referring Phys: Photonics Engineer Neville Almeida RDCS Procedure CPT: Indications: chf Cardiac Hx: Technical Quality: Poor Contrast 1: Total Dose (mL): Contrast 2: Total Dose (mL): MEASUREMENTS (Male / Female) Normal Values 2D ECHO LV Diastolic Diameter PLAX 4.4 cm 4.2 - 5.9 / 3.9 - 5.3 cm LV Systolic Diameter PLAX 2.7 cm IVS Diastolic Thickness 1.5 cm 0.6 - 1.0 / 0.6 - 0.9 cm LVPW Diastolic Thickness 1.4 cm 0.6 - 1.0 / 0.6 - 0.9 cm LV Relative Wall Thickness 0.7 RV Internal Dim ED PLAX 1.4 cm LA Systolic Diameter LX 4.1 cm 3.0 - 4.0 / 2.7 - 3.8 cm LV Diastolic Volume MOD BP 83.5 cm??? 67 - 155 / 56 - 104 cm??? LV Systolic Volume MOD BP 48.1 cm??? 22 - 58 / 19 - 49 cm??? LV Ejection Fraction MOD BP 42.4 % >= 55 % LV Cardiac Index MOD BP 1407.9 cm???/min???m??? LV Diastolic Volume MOD 4C 86.7 cm??? LV Systolic Volume MOD 4C 57.5 cm??? LV Ejection Fraction MOD 4C 33.7 % LV Cardiac Index MOD 4C 1163.2 cm???/min???m??? LV Diastolic Length 4C 8.2 cm LV Systolic Length 4C 7.0 cm LV Diastolic Volume MOD 2C 73.3 cm??? LV Systolic Volume MOD 2C 37.3 cm??? LV Ejection Fraction MOD 2C 49.1 % LV Cardiac Index MOD 2C 1431.6 cm???/min???m??? LV Diastolic Length 2C 7.3 cm LV Systolic Length 2C 6.5 cm LA Volume 104.2 cm??? 18 - 58 / 22 - 52 cm??? LA Volume Index 53.1 cm???/m??? 16 - 28 cm???/m??? DOPPLER AV Peak Velocity 153.5 cm/s AV Peak Gradient 9.4 mmHg AV Mean Velocity 102.6 cm/s AV Mean Gradient 4.8 mmHg AV Velocity Time Integral 34.4 cm LVOT Peak Velocity 78.4 cm/s LVOT Peak Gradient 2.5 mmHg LVOT Velocity Time Integral 16.0 cm MV Peak Velocity 150.9 cm/s MV Peak Gradient 9.1 mmHg MV Mean Velocity 96.8 cm/s MV Mean Gradient 4.1 mmHg MV Velocity Time Integral 46.9 cm MV Area PHT 3.8 cm??? Mitral E Point Velocity 136.3 cm/s Mitral A Point Velocity 138.5 cm/s Mitral E to A Ratio 1.0 MV Deceleration Time 201.7 ms TR Peak Velocity 173.3 cm/s TR Peak Gradient 12.0 mmHg FINDINGS Left Ventricle Left ventricular ejection fraction is estimated at 40-45 %. Moderately increased septal wall thickness. Mildly decreased left ventricular ejection fraction. Reduced global left ventricular systolic function. Right Ventricle Normal right ventricular size and function. Right Atrium Normal right atrial size. No right atrial thrombus or mass seen. Left Atrium Severely increased left atrial volume. No left atrial thrombus or mass present. Mitral Valve No mitral stenosis. Moderate mitral regurgitation. Mild thickening/calcification of the posterior mitral valve leaflet. Mild mitral annular calcification. Aortic Valve Trileaflet aortic valve. No aortic valve stenosis or regurgitation. Tricuspid Valve No tricuspid stenosis. Trace tricuspid regurgitation. Pulmonic Valve Structurally normal pulmonic valve. No pulmonic stenosis. Trace pulmonic regurgitation. Pericardium Normal pericardium. No pericardial or pleural effusion. Aorta Normal size aortic root and proximal ascending aorta. CONCLUSIONS LVEF 45% Mild LV global systolic dysfunction. No obvious regional wall motion abnormality Normal RV size and systolic function Severe left atrial dilatation Moderate mitral regurgitation with mitral annular calcification RVSP estimated at 20 mmHg Previewed by: Dr Jerome Osborn (Electronically Signed) Final Date: 14 September 2024 10:57
[2024-09-14 11:23] LABS: Glucose,Whole Blood 102 mg/dL (70-110)
--- NOTE | 2024-09-14 12:45 | P.PN ---
Subjective HISTORY OF PRESENT ILLNESS: Patient is a pleasant 84-year-old male with a history of respiratory failure with recent hospitalization at [facility] requiring intubation who presented secondary to shortness of breath. Patient poor historian and does not speak Singaporean however nephew is there to translate. Patient stating he wants to go home and not answering questions even through translation. Apparently he had lengthy hospitalization at [facility] however unsure of any definitive diagnosis. He was found to have fever on presentation with UTI and chest x-ray consistent with left lower lobe pneumonia. CT of the chest showed possible left lower lobe pneumonia. Through translation he denies any chest pain or pressure. He denies any prior cardiac history. Cardiology was consulted secondary to CHF and hypotension. Patient has had intermittent lower blood pressures in the 80s to 90s systolic. White blood cell count 18, hemoglobin 10.9, D-dimer 2.0, creatinine 2.3, 2.5, troponin 0.015, 0.012 and proBNP 1970. EKG shows normal sinus rhythm normal axis nonspecific minimal ST depressions in the inferior and lateral leads. 09/11 Patient seen and examined. No issues per nursing. He does have a one-to-one sitter to redirect patient. Creatinine stable at 2.5. Concern of patient aspirating therefore patient n.p.o. and awaiting swallow eval. White blood cell count coming down to 10. 09/12/2024 Patient examined this morning at the bedside. No family present. Mild language barrier present. car greaser at the bedside. Patient currently denies CP or SOB. Vital signs are stable. Patient working with physical therapy at the time of examination. 09/13/2024 Patient examined this morning to bedside. He is resting comfortably in bed. He denies any complaints of chest pain or shortness of breath. Vital signs are st able. 09/14/2024 Patient examined this morning at the bedside. He is resting comfortably in bed. He denies any complaints of chest pain or shortness of breath. Vital signs are stable. PHYSICAL EXAM: VITAL SIGNS: Reviewed. GENERAL: Well-developed in no acute distress. NECK: Supple. No JVD or thyromegaly LUNGS: Respirations even and unlabored. Lungs essentially clear to auscultation bilaterally. HEART: Regular rate and rhythm. S1 and S2 heard. EXTREMITIES: Normal range of motion. No clubbing or cyanosis. Peripheral pulses intact. No lower extremity edema ASSESSMENT: Acute on chronic respiratory failure Hypotension related to sepsis Elevated proBNP, chronic diastolic heart failure Sepsis Coronary artery calcifications noted on CT Hypertension on home metoprolol Urinary tract infection Possible pneumonia History of metastatic bladder cancer status post surgery and immunotherapy, off immunotherapy for 4 years History of CAD History of AAA PLAN: No clinical signs of CHF Continue current cardiac medications Continue to monitor BP Patient is stable from a cardiac standpoint with no further inpatient recommendations We will sign off. Please reconsult if needed. Nurse practitioner note has been reviewed by physician. Signing provider agrees with the documented findings, assessment, and plan of care documented by SLATE CUTTER OPERATOR as a scribe. Objective - Vital Signs Vital signs: Vital Signs Temp 97.6 F 09/14/24 09:54 Pulse 76 09/14/24 11:48 Resp 17 09/14/24 11:48 BP 130/81 09/14/24 11:48 Pulse Ox 95 09/14/24 11:48 FiO2 21 09/14/24 08:13 Intake & Output 09/13/24 09/14/24 09/14/24 18:59 06:59 18:59 Intake Total 560 40 128 Output Total 1250 1525 375 Balance -690 -1485 -837 Weight 82 kg 82 kg Intake: IV 20 40 10 Invasive Line 3 20 30 Invasive Line 4 10 10 Oral 540 118 Output: Urine 1250 1525 375 Other: # Bowel Movements 1 1 - Labs CBC & Chem 7: 09/11/24 05:51 09/11/24 05:51 Labs: Abnormal Lab Results - Last 24 Hours (Table) 09/13/24 09/13/24 Range/Units 16:44 19:59 POC Glucose (mg/dL) 145 H 236 H (70-110) mg/dL Microbiology - Last 24 Hours (Table) 09/10/24 23:55 Urine Culture - Final Urine,Ureter Enterococ casseliflavus(grp d) Klebsiella pneumoniae 09/09/24 23:18 Blood Culture - Preliminary Blood
--- NOTE | 2024-09-14 14:44 | P.PN ---
Subjective Progress Note Date: 09/14/24 Principal diagnosis: Acute hypoxic respiratory failure with acute UTI and possible aspiration pneumonia./Acute sepsis. This is an 84-year-old white male, poor historian, patient does not speak any Peruvian, supposedly the patient was admitted recently to [facility] with acute hypoxic respiratory failure requiring intubation mechanical ventilation. It is unknown how long was the patient intubated and mechanically ventilated, but supposedly the patient had pneumonia and urinary tract infection and he was recently discharged home. Seen again recently at [facility] or [facility], and he was evaluated for shortness of breath, and fever, no workup could be seen on the chart on this patient, and no family around for getting more information on the patient, however patient was noted to have significant leukocytosis with WBC count of 18.0 hemoglobin 10.9, abnormal renal profile with a BUN of 42 creatinine 2.37 abnormal urinalysis suggestive of urin mary jo tract infection, chest x-ray suggestive of left lower lobe pneumonia/atelectasis, CT of the chest showing possible left lower lobe pneumonia. Obviously the patient is presenting with a picture of UTI and left lower lobe pneumonia/sepsis. Again not much information could be obtained from the patient himself and no family members available. Patient will be admitted I saw this patient in consultation and I started the patient empirically on Zosyn. Seen today on 09/11/2024, patient feels more comfortable today, not in any distress, O2 sat is 95% on 7 L high flow nasal cannula. No cough no wheezing no fever no chills no hemoptysis. WBC count is 10.1 hemoglobin 10.5 electrolytes are normal BUN is 50 creatinine holding at 2.59. Blood sugar is 185 CT chest on admission clearly showed left lower lobe pneumonia The patient is seen today September 12, 2024 in follow-up on the selective care unit. He is awake and alert in no acute distress. Resting in bed. 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 He is maintaining O2 saturations in the 90s on 4 L/min per nasal cannula. He is afebrile. Hemodynamically stable. Glucose 181. He remains on Augmentin. Continued on DuoNeb inhalations. Continued on IV Solu-Medrol. Heparin for DVT prophylaxis. Seen today on 09/14/2024, patient is quite comfortable does not seem to be in any distress, no cough no wheezing no shortness of breath, is intermittently confused, he has a sitter at bedside. Remains on bronchodilators, he is also on oral Augmentin, DuoNeb, IV Solu-Medrol which could be transition to oral prednisone, at 40 mg daily. Patient should be considered for possible discharge planning. Seen today on 09/14/2024 patient is comfortable in no distress, on room air, seems to be less confused, remains on bronchodilators also on oral Augmentin, and I believe the patient should be considered for discharge planning. Objective - Vital Signs Vital signs: Vital Signs Temp 97.6 F 09/14/24 09:54 Pulse 76 09/14/24 11:48 Resp 17 09/14/24 11:48 BP 130/81 09/14/24 11:48 Pulse Ox 95 09/14/24 11:48 FiO2 21 09/14/24 08:13 Intake & Output 09/13/24 09/14/24 09/14/24 18:59 06:59 18:59 Intake Total 560 40 318 Output Total 1250 1525 975 Balance -005 -4177 -983 Weight 82 kg 82 kg Intake: IV 20 40 20 Invasive Line 3 20 30 Invasive Line 4 10 20 Oral 540 298 Output: Urine 1250 1525 975 Other: # Bowel Movements 1 1 - Exam Physical exam revealed an 84-year-old white male, in no distress, on room air with O2 sat of 95% Head: Atraumatic, normocephalic EENT: PERRLA, EOMI, nonicteric, no neck masses, no JVD, no stridor, moist mucous membranes Chest: Symmetrical chest expansion Lungs: Diminished breath sound bilaterally no rhonchi no wheezes Cardiac: Normal S1-S2, no S3 gallop, no murmur, no bruit Abdomen: Soft nontender no megaly no rebound no guarding good bowel sounds Extremities: No clubbing edema or cyanosis, good pulses bilaterally Musculoskeletal: No deformities and no limitation range of motion Neurologic: No gross focal neurologic deficit Psychiatric: Normal mood, normal affect, normal mental status examination Skin: No rash - Labs CBC & Chem 7: 09/11/24 05:51 09/11/24 05:51 Labs: Abnormal Lab Results - Last 24 Hours (Table) 09/13/24 09/13/24 Range/Units 16:44 19:59 POC Glucose (mg/dL) 145 H 236 H (70-110) mg/dL Microbiology - Last 24 Hours (Table) 09/10/24 23:55 Urine Culture - Final Urine,Ureter Enterococ casseliflavus(grp d) Klebsiella pneumoniae 09/09/24 23:18 Blood Culture - Preliminary Blood Assessment and Plan Assessment: Impression: Acute hypoxic respiratory failure Acute urinary tract infection Suspected aspiration pneumonia or hospital-acquired pneumonia as the patient was recently admitted with pneumonia and respiratory failure requiring intubation mechanical ventilation presently on Augmentin Acute sepsis secondary to above Benign essential hypertension History of bladder cancer History of gout Recommendation: Continue Augmentin Change methylprednisolone to prednisone 40 mg daily Continue oxygen and titrate accordingly Urine cultures are positive for Klebsiella pneumoniae and Enterococcus group D, being followed by infectious disease, presently on Augmentin GI and DVT prophylaxis Consider discharge planning to [facility]CF Time with Patient: Less than 30
--- NOTE | 2024-09-14 15:03 | P.PN ---
Subjective Progress Note Date: 09/14/24 Principal diagnosis: Reason for follow-up is UTI/pneumonia Patient is 84-year-old male with a past medical history taken for bladder/colon cancer, hypertension gout, recent prolonged stay at [facility] for respiratory failure requiring intubation and prolonged hospital stay, patient has been brought to the hospital 2 days ago as a transfer from outside facility for evaluation of increasing shortness of breath and fever and has been diagnosed with a pneumonia question of UTI. On today's evaluation that is 09/14/2024, the patient continues to be afebrile, the patient is on room air and breathing comfortably, the Pt seem to be more awake and alert and asked when he can go home nursing staff has reported that the episode of loose stools today. No new lab has been obtained today Objective - Vital Signs Vital signs: Vital Signs Temp 97.6 F 09/14/24 09:54 Pulse 76 09/14/24 11:48 Resp 17 09/14/24 11:48 BP 130/81 09/14/24 11:48 Pulse Ox 95 09/14/24 11:48 FiO2 21 09/14/24 08:13 Intake & Output 09/13/24 09/14/24 09/14/24 18:59 06:59 18:59 Intake Total 560 40 128 Output Total 1250 1525 375 Balance -690 -1485 -555 Weight 82 kg 82 kg Intake: IV 20 40 10 Invasive Line 3 20 30 Invasive Line 4 10 10 Oral 540 118 Output: Urine 1250 1525 375 Other: # Bowel Movements 1 1 - Exam GENERAL DESCRIPTION: An elderly male lying in bed in no distress RESPIRATORY SYSTEM: Unlabored breathing , decreased breath sounds at bases HEART: S1 S2 regular rate and rhythm , ABDOMEN: Soft , no tenderness EXTREMITIES: No edema feet - Labs CBC & Chem 7: 09/11/24 05:51 09/11/24 05:51 Labs: Abnormal Lab Results - Last 24 Hours (Table) 09/13/24 09/13/24 Range/Units 16:44 19:59 POC Glucose (mg/dL) 145 H 236 H (70-110) mg/dL Microbiology - Last 24 Hours (Table) 09/10/24 23:55 Urine Culture - Final Urine,Ureter Enterococ casseliflavus(grp d) Klebsiella pneumoniae 09/09/24 23:18 Blood Culture - Preliminary Blood Assessment and Plan (1) Pneumonia Current Visit: Yes Status: Acute Code(s): J18.9 - PNEUMONIA, UNSPECIFIED ORGANISM SNOMED Code(s): 885646298 (2) Sepsis Current Visit: Yes Status: Acute Code(s): A41.9 - SEPSIS, UNSPECIFIED ORGANISM SNOMED Code(s): 57541444 (3) UTI (urinary tract infection) Current Visit: Yes Status: Acute Code(s): N39.0 - URINARY TRACT INFECTION, SITE NOT SPECIFIED SNOMED Code(s): 84365264 Plan: 1patient presented hospital with sepsis in this patient who did have a fever tachycardia elevated white count meeting currently for SIRS/sepsis source likely left lower lobe pneumonia in this patient who did have a history of recent hospitalization will need to cover for resistant gram-negative to be the likely pathogen rather than community acquired pathogen he also has significantly positive UA possible component of urinary source not entirely excluded however it is very hard to get any history from this patient regarding any urinary symptoms 2 sputum for Gram stain culture not collected, blood culture has been negative and urine cultures currently growing Klebsiella as well as Enterococcus that is ampicillin and vancomycin resistant 3patient has developed diarrhea we will check a stool for C. difficile and treat if positive for now continue with Augmentin and Zyvox Dictation was produced using [employer] dictation software. please excuse any grammatical, word or spelling errors. Time with Patient: Less than 30
[2024-09-14 16:29] LABS: Glucose,Whole Blood 172 mg/dL (70-110)
[2024-09-14 20:15] LABS: Glucose,Whole Blood 220 mg/dL (70-110)
--- NOTE | 2024-09-15 01:56 | PN ---
PROGRESS NOTE SUBJECTIVE: Weaning down the oxygen to 2 L of oxygen. History of UTI, pneumonia. With breathing treatment is breathing better. OBJECTIVE: VITAL SIGNS: Temperature 97.6, blood pressure 136/66, O2 92-94 on room air, and respiratory rate 16-18. CARDIOVASCULAR: S1, S2. LUNGS: Scattered rhonchi and wheeze. HEMATOLOGY: Negative Homans. GI: Soft. NEUROLOGIC: Alert and oriented x3. ASSESSMENT AND PLAN: Probably go home tomorrow, weaned off oxygen and continue on respiratory failure treatment for pneumonia, urinary tract infection. He will be discharged home tomorrow. Appears stable. Vital signs stable. Ambulate as tolerated. MMODL / IJN: [id number] /
[2024-09-15 06:13] LABS: Glucose,Whole Blood 91 mg/dL (70-110)
[2024-09-15 11:39] LABS: Glucose,Whole Blood 102 mg/dL (70-110)
--- NOTE | 2024-09-15 15:06 | P.PN ---
Subjective Progress Note Date: 09/15/24 Principal diagnosis: Reason for follow-up is UTI/pneumonia Patient is 84-year-old male with a past medical history taken for bladder/colon cancer, hypertension gout, recent prolonged stay at [facility] for respiratory failure requiring intubation and prolonged hospital stay, patient has been brought to the hospital 2 days ago as a transfer from outside facility for evaluation of increasing shortness of breath and fever and has been diagnosed with a pneumonia question of UTI. On today's evaluation that is 09/15/2024, patient did have a temperature of 98 F this morning and denies having any chills, patient is on room air and breathing comfortably no chest pain or cough, the patient did not have any nausea vomiting abdominal pain or any worsening diarrhea reported. Patient stool for C. difficile is negative no lab draw today blood culture negative Objective - Vital Signs Vital signs: Vital Signs Temp 97.6 F 09/15/24 08:43 Pulse 70 09/15/24 12:42 Resp 16 09/15/24 11:51 BP 168/82 09/15/24 11:51 Pulse Ox 91 L 09/15/24 11:51 FiO2 21 09/14/24 08:13 Intake & Output 09/14/24 09/15/24 09/15/24 18:59 06:59 18:59 Intake Total 318 10 118 Output Total 975 1050 525 Balance -657 -1040 -407 Weight 82 kg 80 kg Intake: IV 20 10 Invasive Line 4 20 10 Oral 298 118 Output: Urine 975 1050 525 Other: # Bowel Movements 1 1 - Exam GENERAL DESCRIPTION: An elderly male lying in bed in no distress RESPIRATORY SYSTEM: Unlabored breathing , decreased breath sounds at bases HEART: S1 S2 regular rate and rhythm , ABDOMEN: Soft , no tenderness EXTREMITIES: No edema feet - Labs CBC & Chem 7: 09/11/24 05:51 09/11/24 05:51 Labs: Abnormal Lab Results - Last 24 Hours (Table) 09/14/24 09/14/24 Range/Units 16:27 20:13 POC Glucose (mg/dL) 172 H 220 H (70-110) mg/dL Microbiology - Last 24 Hours (Table) 09/09/24 23:18 Blood Culture - Final Blood Assessment and Plan (1) Pneumonia Current Visit: Yes Status: Acute Code(s): J18.9 - PNEUMONIA, UNSPECIFIED ORGANISM SNOMED Code(s): 809792886 (2) Sepsis Current Visit: Yes Status: Acute Code(s): A41.9 - SEPSIS, UNSPECIFIED ORGANISM SNOMED Code(s): 22322337 (3) UTI (urinary tract infection) Current Visit: Yes Status: Acute Code(s): N39.0 - URINARY TRACT INFECTION, SITE NOT SPECIFIED SNOMED Code(s): 77338749 Plan: 1patient presented hospital with sepsis in this patient who did have a fever tachycardia elevated white count meeting currently for SIRS/sepsis source likely left lower lobe pneumonia in this patient who did have a history of recent hospitalization will need to cover for resistant gram-negative to be the likely pathogen rather than community acquired pathogen he also has significantly positive UA possible component of urinary source not entirely excluded however it is very hard to get any history from this patient regarding any urinary symptoms 2 sputum for Gram stain culture not collected, blood culture has been negative and urine cultures currently growing Klebsiella as well as Enterococcus that is ampicillin and vancomycin resistant 3patient has developed diarrhea, stool for C. difficile is negative will add Questran for symptomatic relief, and continue with Augmentin and Zyvox Dictation was produced using [employer] dictation software. please excuse any grammatical, word or spelling errors. Time with Patient: Less than 30
[2024-09-15 16:37] LABS: Glucose,Whole Blood 191 mg/dL (70-110)
[2024-09-15 21:44] LABS: Glucose,Whole Blood 141 mg/dL (70-110)
[2024-09-16 07:32] LABS: Glucose,Whole Blood 89 mg/dL (70-110)
--- NOTE | 2024-09-16 10:19 | PN ---
PROGRESS NOTE SUBJECTIVE: Seen with Pulmonary and Dr. Miller for UTI and aspiration pneumonia. OBJECTIVE: VITAL SIGNS: Stable, afebrile. CARDIOVASCULAR: S1, S2. Scattered rhonchi and wheeze. HEMATOLOGY: Negative Homans. ASSESSMENT AND PLAN: Urinary tract infection, community-acquired pneumonia, and chronic obstructive pulmonary disease. Prognosis guarded as tolerated. Switch to oral antibiotics, steroids, updrafts. Prognosis guarded. MMODL / IJN: [id number] /
[2024-09-16 11:33] LABS: Glucose,Whole Blood 126 mg/dL (70-110)
--- NOTE | 2024-09-16 15:39 | P.PN ---
Subjective Progress Note Date: 09/16/24 Principal diagnosis: Reason for follow-up is UTI/pneumonia Patient is 84-year-old male with a past medical history taken for bladder/colon cancer, hypertension gout, recent prolonged stay at [facility] for respiratory failure requiring intubation and prolonged hospital stay, patient has been brought to the hospital 2 days ago as a transfer from outside facility for evaluation of increasing shortness of breath and fever and has been diagnosed with a pneumonia question of UTI. On today's evaluation that is 09/16/2024, Patient is afebrile patient is currently on room air and denies having any shortness of breath, the patient denies any chest pain or cough, the patient denies any nausea vomiting did not have any abdominal pain and no diarrhea. No new lab has been obtained today Objective - Vital Signs Vital signs: Vital Signs Temp 98.0 F 09/16/24 13:27 Pulse 59 L 09/16/24 13:27 Resp 17 09/16/24 13:27 BP 143/66 09/16/24 13:27 Pulse Ox 90 L 09/16/24 13:27 FiO2 21 09/14/24 08:13 Intake & Output 09/15/24 09/16/24 09/16/24 18:59 06:59 18:59 Intake Total 118 540 Output Total 525 600 450 Balance -407 -60 -450 Intake: Oral 118 540 Output: Urine 525 600 450 Other: Voiding Method Ileal Conduit (Right) # Voids 2 - Exam GENERAL DESCRIPTION: An elderly male lying in bed in no distress RESPIRATORY SYSTEM: Unlabored breathing , decreased breath sounds at bases HEART: S1 S2 regular rate and rhythm , ABDOMEN: Soft , no tenderness EXTREMITIES: No edema feet - Labs CBC & Chem 7: 09/11/24 05:51 09/11/24 05:51 Labs: Abnormal Lab Results - Last 24 Hours (Table) 09/15/24 09/15/24 09/16/24 Range/Units 16:35 21:42 11:32 POC Glucose (mg/dL) 191 H 141 H 126 H (70-110) mg/dL Microbiology - Last 24 Hours (Table) 09/09/24 23:18 Blood Culture - Final Blood Assessment and Plan (1) Pneumonia Current Visit: Yes Status: Acute Code(s): J18.9 - PNEUMONIA, UNSPECIFIED ORGANISM SNOMED Code(s): 558755746 (2) Sepsis Current Visit: Yes Status: Acute Code(s): A41.9 - SEPSIS, UNSPECIFIED ORGANISM SNOMED Code(s): 46707950 (3) UTI (urinary tract infection) Current Visit: Yes Status: Acute Code(s): N39.0 - URINARY TRACT INFECTION, SITE NOT SPECIFIED SNOMED Code(s): 23813756 Plan: 1patient presented hospital with sepsis in this patient who did have a fever tachycardia elevated white count meeting currently for SIRS/sepsis source likely left lower lobe pneumonia in this patient who did have a history of recent hospitalization will need to cover for resistant gram-negative to be the likely pathogen rather than community acquired pathogen he also has significantly positive UA possible component of urinary source not entirely excluded however it is very hard to get any history from this patient regarding any urinary symptoms 2 sputum for Gram stain culture not collected, blood culture has been negative and urine cultures currently growing Klebsiella as well as Enterococcus that is ampicillin and vancomycin resistant 3patient did have improvement in diarrhea to continue Questran for symptomatic relief, and continue with Augmentin and Zyvox finish his course of therapy Dictation was produced using [employer] dictation software. please excuse any grammatical, word or spelling errors. Time with Patient: Less than 30
[2024-09-16 16:40] LABS: Glucose,Whole Blood 221 mg/dL (70-110)
[2024-09-16 20:37] LABS: Glucose,Whole Blood 199 mg/dL (70-110)
--- NOTE | 2024-09-16 22:14 | PN ---
PROGRESS NOTE SUBJECTIVE: The patient came in with left lower lobe pneumonia, acute hypoxemic respiratory distress, weaning down his oxygen levels. Cardiology saw him with Pulmonary. PAST MEDICAL HISTORY: Bladder and colon cancer, hypertension, gout, came to an outside facility for pneumonia plus UTI. He is afebrile. Denies cough. OBJECTIVE: VITAL SIGNS: Temperature 98, pulse 69, blood pressure 143/60. Sat 92% on 3 L. GENERAL: White male, in no acute distress. HEART: S1, S2. ABDOMEN: Soft, nontender. EXTREMITIES: No edema. LABORATORY DATA: Show hemoglobin is 10.5, white count 7.10. ASSESSMENT AND PLAN: Pneumonia left lower lobe, sepsis, urinary tract infection. Sputum Gram stain shows Klebsiella, Enterococcus, ampicillin, vanco resistant and question for diarrhea. Continue Augmentin, Zyvox, finish his course of therapy. He can be discharged home. Please see further antibiotics and treatments. Prognosis is guarded. MMODL / IJN: [id number] /
[2024-09-17 06:26] LABS: Glucose,Whole Blood 121 mg/dL (70-110)
[2024-09-17 07:26] VITALS: BP 160/80; RESP 18; TEMP 98.5
[2024-09-17 11:31] LABS: Glucose,Whole Blood 163 mg/dL (70-110)
[2024-09-17 12:57] VITALS: PULSE 82
--- NOTE | 2024-09-18 14:50 | P.PN ---
Subjective Progress Note Date: 09/17/24 Principal diagnosis: Reason for follow-up is UTI/pneumonia Patient is 84-year-old male with a past medical history taken for bladder/colon cancer, hypertension gout, recent prolonged stay at [facility] for respiratory failure requiring intubation and prolonged hospital stay, patient has been brought to the hospital 2 days ago as a transfer from outside facility for evaluation of increasing shortness of breath and fever and has been diagnosed with a pneumonia question of UTI. On today's evaluation that is 09/17/2024, patient has been afebrile, patient is breathing comfortably and is currently on room air, patient denies having any chest pain and cough, patient denies nausea vomiting or diarrhea and no abdominal pain. No new lab has been obtained today Objective - Vital Signs Vital signs: Vital Signs Temp 98.5 F 09/17/24 07: Pulse 82 09/17/24 12:56 Resp 18 09/17/24 07:25 BP 160/80 09/17/24 07:25 Pulse Ox 93 L 09/17/24 07:25 FiO2 21 09/14/24 08:13 Intake & Output 09/16/24 09/17/24 09/17/24 18:59 06:59 18:59 Output Total 700 575 Balance -700 -575 Weight 79.7 kg Output: Urine 700 575 Other: Voiding Method Ileal Conduit (Right) Ileal Conduit (Right) Ileal Conduit (Right) # Voids 1 # Bowel Movements 1 - Exam GENERAL DESCRIPTION: An elderly male lying in bed in no distress RESPIRATORY SYSTEM: Unlabored breathing , decreased breath sounds at bases HEART: S1 S2 regular rate and rhythm , ABDOMEN: Soft , no tenderness EXTREMITIES: No edema feet - Labs CBC & Chem 7: 09/11/24 05:51 09/11/24 05:51 Labs: Abnormal Lab Results - Last 24 Hours (Table) 09/16/24 09/16/24 09/17/24 Range/Units 16:39 20:35 06:25 POC Glucose (mg/dL) 221 H 199 H 121 H (70-110) mg/dL 09/17/24 Range/Units 11:29 POC Glucose (mg/dL) 163 H (70-110) mg/dL Assessment and Plan (1) Pneumonia Status: Acute Code(s): J18.9 - PNEUMONIA, UNSPECIFIED ORGANISM SNOMED Code(s): 726656014 (2) Sepsis Status: Acute Code(s): A41.9 - SEPSIS, UNSPECIFIED ORGANISM SNOMED Code(s): 53594186 (3) UTI (urinary tract infection) Status: Acute Code(s): N39.0 - URINARY TRACT INFECTION, SITE NOT SPECIFIED SNOMED Code(s): 15806164 Plan: 1patient presented hospital with sepsis in this patient who did have a fever tachycardia elevated white count meeting currently for SIRS/sepsis source likely left lower lobe pneumonia in this patient who did have a history of recent hospitalization will need to cover for resistant gram-negative to be the likely pathogen rather than community acquired pathogen he also has significantly positive UA possible component of urinary source not entirely excluded however it is very hard to get any history from this patient regarding any urinary symptoms 2 sputum for Gram stain culture not collected, blood culture has been negative and urine cultures currently growing Klebsiella as well as Enterococcus that is ampicillin and vancomycin resistant 3patient did have shown clinical improvement short course of Augmentin and Zyvox on DC Dictation was produced using [employer] dictation software. please excuse any grammatical, word or spelling errors. Time with Patient: Less than 30
== END 2024-09-17 16:19 | disposition home or self-care (01) | DRG 871 ==
LOC: EC 22:38 → 3SCARD 23:41 → 4SSUR 09-15 16:10
PROVIDERS: ADMIT Family Medicine; ATTEND Family Medicine
DX: A41.9 Sepsis, unspecified organism (principal); G93.41 Metabolic encephalopathy; J69.0 Pneumonitis due to inhalation of food and vomit; J96.21 Acute and chronic respiratory failure with hypoxia; N17.0 Acute kidney failure with tubular necrosis; J18.9 Pneumonia, unspecified organism; I13.0 Hypertensive heart and chronic kidney disease with heart failure and stage 1 through stage 4 chronic kidney disease, or unspecified chronic kidney disease; J44.0 Chronic obstructive pulmonary disease with (acute) lower respiratory infection; N18.9 Chronic kidney disease, unspecified; I50.32 Chronic diastolic (congestive) heart failure; N39.0 Urinary tract infection, site not specified; Z16.11 Resistance to penicillins; Z16.22 Resistance to vancomycin related antibiotics; B96.1 Klebsiella pneumoniae [K. pneumoniae] as the cause of diseases classified elsewhere; B95.2 Enterococcus as the cause of diseases classified elsewhere; I25.10 Atherosclerotic heart disease of native coronary artery without angina pectoris; F17.200 Nicotine dependence, unspecified, uncomplicated; Z79.890 Hormone replacement therapy; Z79.02 Long term (current) use of antithrombotics/antiplatelets; Z79.899 Other long term (current) drug therapy; Z85.038 Personal history of other malignant neoplasm of large intestine; Z85.51 Personal history of malignant neoplasm of bladder; Z86.79 Personal history of other diseases of the circulatory system
CPT/HCPCS: 36415; 71045; 71250; 74230; 80053; 81001; 82803; 83605; 83735; 83880; 84100; 84145; 84484; 85025; 85379; 85610; 85730; 87040; 87077; 87086; 87186; 87324; 93005; 93306; 94640; 94760; 96361; 96365; 96366; 96367; 96368; 96375; 99291